=== PATIENT | female | born 1940 | race Two or more races ===

== ENCOUNTER 2022-10-25 14:41 | Inpatient (IN) | payer MEDICARE, MEDICAID, SELFPAY ==
--- NOTE | ~2022-10-25 | US_ITS ---
EXAMINATION: US RETROPERITONEAL LIMITED (RENAL ONLY) CLINICAL INFORMATION: Chronic kidney disease. COMPARISON: Previous chest CT October 2022 TECHNIQUE: Grayscale and color imaging of the kidneys FINDINGS: RIGHT KIDNEY: 9.3 x 4.4 x 4.9 cm (SAG x AP x TRV). The kidney is normal in size, contour, and echogenicity. Renal cortical thickness is normal. No calculi or focal parenchymal lesions. No hydronephrosis. LEFT KIDNEY: 9.5 x 5 x 4 cm (SAG x AP x TRV). The kidney is normal in size, contour, and echogenicity. Renal cortical thickness is normal. 3.6 x 2.1 x 2.1 cm simple cyst in the medial upper pole. No imaging follow-up recommended. Trace perinephric fluid. No calculi. No hydronephrosis. US/US renal BI IMPRESSION: No evidence of hydronephrosis. Trace left perinephric fluid..
--- NOTE | ~2022-10-25 | CT_ITS ---
EXAMINATION: CT CHEST WITHOUT CONTRAST CLINICAL INFORMATION: Pneumonia COMPARISON: Radiographs the same day TECHNIQUE: Multidetector volumetric CT imaging of the chest was done. Axial MIP volume rendering provided. Sagittal and coronal reformatted images were obtained. This CT examination was performed using dose optimization techniques as appropriate, variously including the following: *Automated exposure control *Adjustment of mA and/or kV according to patient size (this includes techniques or standardized protocols for targeted exams where dose is matched to indication/reason for exam; i.e. extremities or head) *Use of iterative reconstruction technique DLP: Prone mGy-cm FINDINGS: GUEST EXPERIENCE MANAGER: Unchanged LUNGS: Extensive consolidation left upper lobe and lesser degrees both lower lung zones involving the lower lobes. Notable elevation right hemidiaphragm. No parapneumonic effusion or any subpulmonic pleural effusions. MEDIASTINUM: Reactive appearing mediastinal lymph nodes. Extensive coronary artery calcifications. Notable prominence of the pulmonary arteries suggesting pulmonary hypertension. CORONARY ARTERY CALCIFICATION: Present PLEURA: There is no pleural effusion. No pleural mass or thickening. AXILLA: No lymphadenopathy. UPPER ABDOMEN: Unremarkable. OSSEOUS STRUCTURES: Unremarkable. CT/CT chest wo IV con IMPRESSION: Multifocal pneumonia as above. No parapneumonic effusion. Notable elevation right hemidiaphragm. Fleischner guidelines were followed.
--- NOTE | ~2022-10-25 | XR_ITS ---
EXAMINATION: XR CHEST 2 VIEW CLINICAL INFORMATION: Chest pain COMPARISON: None TECHNIQUE: PA and lateral views of the chest obtained. FINDINGS: There are low lung volumes. The right hemidiaphragm is elevated as compared to the left, but the right lung is clear. There are airspace opacities in the periphery of the left mid and lower lung zone. There is probably a small left pleural effusion there may also be a small right pleural effusion. The cardiomediastinal silhouette is not well assessed secondary to the low lung volumes. XR/XR chest 2V IMPRESSION: 1. Probable small bilateral pleural effusions with bibasilar atelectasis. 2. Airspace opacities in the left mid and lower lung zone, perhaps pneumonia, though nonspecific. Follow-up is recommended to confirm clearing. If persistent, chest CT might help better evaluate the airspace opacities.
[2022-10-25 14:43] VITALS: BP 153/85; PULSE 95; RESP 19; TEMP 38.4; O2SAT 91; BMI 26.9
--- NOTE | 2022-10-25 14:43 | ED.GENADULT ---
HPI - General Adult General Chief complaint: General Medical Stated complaint: diff breathing Time Seen by Provider: 10/25/22 15:15 Source: patient and family Mode of arrival: ambulatory Limitations: no limitations History of Present Illness HPI narrative: Patient comes to the emergency room complaining of nausea, vomiting, nasal congestion, sneezing. Patient complaining of fever and chills, patient denies abdominal pain, no UTI symptoms. Related Data Allergies Allergy/AdvReac Type Severity Reaction Status Date / Time No Known Allergies Allergy Verified 10/25/22 14:43 Review of Systems Review of Systems: Constitutional : No Weight loss, No Fever, No Chills, No Night Sweats, No Fatigue, No Malaise ENT/Mouth : No Hearing loss, No Ear Pain, No Nasal Congestion, No Sinus Pain, No Hoarseness, No sore throat, No Rhinorrhea, No Swallowing Difficulty Eyes: No Eye Pain, No Swelling, No Redness, No Foreign Body, No Discharge, No Vision Changes Cardiovascular : No Chest Pain, No SOB, No Dyspnea on Exertion, No Orthopnea, No Edema, No Palpitations Respiratory : No Cough, No Sputum, No Wheezing, complaining of nasal congestion and sneezing Gastrointestinal : No Nausea, No Vomiting, No Diarrhea, No Constipation, No abdominal Pain, No Hematochezia, No Melena Genitourinary : no irregular bleeding, No Dysuria, No Urinary Frequency, No Hematuria, No Urinary Incontinence, No Urgency, No Flank Pain, No Urinary Flow Changes, No Hesitancy Musculoskeletal : No joint pain, No Myalgias, No Joint Swelling Skin : No Skin Lesions, No rash Neuro : No Weakness, No Numbness, No Paresthesias, No Loss of Consciousness, No Dizziness, No Headache Psych : No Anxiety/Panic, No Depression, No SI/HI/AH/VH, No Social Issues, Heme/Lymph: No Bruising, No Bleeding,No Lymphadenopathy Endocrine : No Polyuria, No Polydipsia, No Temperature Intolerance [facility] Past Medical History Medical History (Updated 10/25/22 @ 16:38 by Jacinta Claros MD) Chronic kidney disease Hypertension Social History Social History Advance Directives: No Advance Directives Information Provided: Yes Physical Exam ED Vital Signs: Vital Signs - 24 hr 10/25/22 14:43 10/25/22 15:52 Temperature 101.2 F H 102.7 F H Pulse Rate 95 89 Respiratory Rate 19 45 H Blood Pressure 153/85 H 117/55 L Pulse Oximetry 91 L 83 L Oxygen Delivery Method Room Air Room Air BMI result Body Mass Index 26.9 Const Other: Appearance: Alert. Oriented X3. No acute distress. Eyes: Pupils equal, round and reactive to light. ENT: Pharynx normal. Neck: Normal inspection. Neck supple. No lymph nodes noted. No crepitus CVS: Normal heart rate and rhythm. Pulses normal. Normal S1 and S2 Respiratory: No respiratory distress. Breath sounds normal. No Wheezing. No rales Abdomen: Soft and nontender. No rigidity. No distention. Skin: Skin warm and dry. Normal skin color. Normal skin turgor. Extremities: No lower extremity edema. No Lacerations. No Rash Neuro: Oriented X 3. No motor deficit. No sensory deficit. Moving all extremities. No slurred speech. CN 2 through 12 grossly intact Psych: calm, cooperative, normal affect Course Course Course Narrative: RME- 82 year old female presents for evaluation of multiple complaints including abdominal pain, shortness of breath. Symptoms started 3-4 days ago. Symptoms worsened today. Patient found to be febrile in triage. Plan for labs, ekg, chest xray, covid swab, blood cultures Medications Administered Generic Name Dose Route Start Last Admin Trade Name Freq PRN Reason Stop Dose Admin Ceftriaxone Sodium 1 gm/ 50 mls @ 100 mls/hr 10/25/22 16:01 10/25/22 16:19 Sodium Chloride IV 10/25/22 16:30 100 mls/hr ONCE ONE Administration Sodium Chloride 2,068.38 mls @ 2,068.38 mls/hr 10/25/22 16:01 10/25/22 16:20 Ns 30 ml/kg infuse over 1 hr (2068.38 ml) 10/25/22 17:00 2,068.38 mls/hr IV Administration .Q1H STA Discontinued Medications Generic Name Dose Route Start Last Admin Trade Name Freq PRN Reason Stop Dose Admin Acetaminophen 975 mg 10/25/22 14:45 10/25/22 14:58 Acetaminophen 325 Mg Tablet PO 10/25/22 14:46 975 mg ONCE ONE Administration Ibuprofen 400 mg 10/25/22 15:56 10/25/22 16:07 Ibuprofen 600 Mg Tablet PO 10/25/22 15:57 400 mg ONCE ONE Administration Medical Decision Making Medical Decision Making [facility] Narrative: -on arrival in triage, patient was noted to have a fever of 101.2, given acetaminophen. Patient's fever actually increased, patient receiving ibuprofen. -it was noted that when patient moves/minimal exertion in bed, oxygen saturation drops to 83%., patient needs supplemental oxygen, 2 L, oxygenating 95%. -patient also reports that she has been nauseous and occasionally vomiting. -at this time, 16:03, chest x-rays and labs pending. Patient receiving IV fluids. At this time, unclear if patient has viral infection versus bacterial/pneumonia, source of infection likely to be respiratory. Patient empirically covered with IV antibiotics. -16:25, x-rays were taking, my interpretation of x-rays multilobular pneumonia, worse on the left lower lobe. The alleged report pending. IV Azithromycin has been added to the patient's antibiotic treatment -radiology report: Small bilateral pleural effusions, possible pneumonia. Patient has fever, this is likely to be pneumonia rather than effusions. Patient to be admitted. Discussed with patient and family, all agreeable -my interpretation of labs: White blood cell count 12.4, lactic acid normal. Creatinine 2.06, we do not have any previous labs for comparison. However, the patient's family did mention that the patient has chronic kidney disease. -I discussed the patient with Dr. Avendano, patient being admitted -respiratory panel pending Differential Diagnosis Differential Diagnoses: The differential diagnosis associated with the presentation includes Admission/Observation Consideration of admission/observation: Escalation of care including admission/observation considered Consult Healthcare Provider Management of the patient was discussed with: Hospitalist Lab Data [facility] Lab Attestation statement: I reviewed the patient's lab results. 10/25/22 15:40 10/25/22 15:40 Labs: Lab Results 10/25/22 10/25/22 10/25/22 Range/Units 15:13 15:40 15:40 WBC 12.4 H (4.8-10.8) X10*3/uL RBC 2.96 L (4.20-5.50) X10*6/uL Hgb 10.0 L (12.0-16.0) g/dl Hct 30.1 L (37.0-47.0) % MCV 101.7 H (80.0-98.0) fL MCH 33.8 H (27.0-33.0) pg MCHC 33.2 (31.0-35.0) g/dl RDW 13.2 (11.0-16.0) % Plt Count 128 L (160-400) X10*3/uL MPV 10.5 (9.4-12.3) fL Immature Gran % (Auto) 1.3 H (0.0-0.4) % Neut % (Auto) 90.2 H (45-73) % Lymph % (Auto) 4.7 L (20-40) % [place] % (Auto) 3.5 (2-11) % Eos % (Auto) 0.1 (0-4) % Baso % (Auto) 0.2 (0-2) % Lymph # (Auto) 0.6 L (1.2-4.9) X10*3/uL [place] # (Auto) 0.4 (0.1-1.2) X10*3/uL Eos # (Auto) 0.0 (0.0-0.4) X10*3/uL Baso # (Auto) 0.0 (0.0-0.2) X10*3/uL Abs Immat Gran (auto) 0.16 H (0.00-0.03) X10*3/uL Absolute Neuts (auto) 11.2 H (2.0-8.3) x10*3/uL Absolute Nucleated RBC 0.000 (0.0-0.012) X10*3/uL Nucleated RBC % (auto) 0.0 (0.0-0.2) /100WBC Smear Tech's Comments VERIFIED Sodium 135 (135-145) mmol/L Potassium 3.5 (3.3-5.1) mmol/L Chloride 103 (96-108) mmol/L Carbon Dioxide 24 (22-29) mmol/L Anion Gap 12 (12-20) BUN 50 H (9-16) mg/dL Creatinine 2.06 H (0.5-1.4) mg/dL Estim Creat Clear Calc 19.2 Estimated GFR 23 Random Glucose 133 H (60-115) mg/dL Lactic Acid (0.5-2.0) mmol/L Calcium 9.5 (8.4-10.2) mg/dL Total Bilirubin 0.6 (0.0-1.0) mg/dL AST 21 (5-31) U/L ALT 14 (0-31) U/L Alkaline Phosphatase 68 (39-117) U/L Troponin I High Sens (<3.5-17.0) ng/L Total Protein 7.7 (6.5-8.0) g/dL Albumin 4.0 (3.5-5.0) g/dL Lipase 10 (8-78) U/L COVID-19 (GERHARD) Negative (Negative) COVID-19 Clin Com See Note 10/25/22 10/25/22 Range/Units 15:40 15:40 WBC (4.8-10.8) X10*3/uL RBC (4.20-5.50) X10*6/uL Hgb (12.0-16.0) g/dl Hct (37.0-47.0) % MCV (80.0-98.0) fL MCH (27.0-33.0) pg MCHC (31.0-35.0) g/dl RDW (11.0-16.0) % Plt Count (160-400) X10*3/uL MPV (9.4-12.3) fL Immature Gran % (Auto) (0.0-0.4) % Neut % (Auto) (45-73) % Lymph % (Auto) (20-40) % [place] % (Auto) (2-11) % Eos % (Auto) (0-4) % Baso % (Auto) (0-2) % Lymph # (Auto) (1.2-4.9) X10*3/uL [place] # (Auto) (0.1-1.2) X10*3/uL Eos # (Auto) (0.0-0.4) X10*3/uL Baso # (Auto) (0.0-0.2) X10*3/uL Abs Immat Gran (auto) (0.00-0.03) X10*3/uL Absolute Neuts (auto) (2.0-8.3) x10*3/uL Absolute Nucleated RBC (0.0-0.012) X10*3/uL Nucleated RBC % (auto) (0.0-0.2) /100WBC Smear Tech's Comments Sodium (135-145) mmol/L Potassium (3.3-5.1) mmol/L Chloride (96-108) mmol/L Carbon Dioxide (22-29) mmol/L Anion Gap (12-20) BUN (9-16) mg/dL Creatinine (0.5-1.4) mg/dL Estim Creat Clear Calc Estimated GFR Random Glucose (60-115) mg/dL Lactic Acid 1.8 (0.5-2.0) mmol/L Calcium (8.4-10.2) mg/dL Total Bilirubin (0.0-1.0) mg/dL AST (5-31) U/L ALT (0-31) U/L Alkaline Phosphatase (39-117) U/L Troponin I High Sens 20.2 H (<3.5-17.0) ng/L Total Protein (6.5-8.0) g/dL Albumin (3.5-5.0) g/dL Lipase (8-78) U/L COVID-19 (GERHARD) (Negative) COVID-19 Clin Com Radiology Impression Discussion of test interpretation with radiology: I have reviewed the radiologist's reading. Radiologist Impression: 1. Probable small bilateral pleural effusions with bibasilar atelectasis. ? 2. Airspace opacities in the left mid and lower lung zone, perhaps pneumonia, though nonspecific. Follow-up is recommended to confirm clearing. If persistent, chest CT might help better evaluate the airspace opacities. Critical Care Time Critical Care Time Critical Care Time: Yes Total Critical Care Time: 75 Attestation: I have personally provided critical care time. Time includes review of lab data, radiology results, discussion with consultants, and monitoring for potential decompensation. Intervention performed as documented. Discharge Plan Discharge Clinical Impression: Pneumonia Patient Disposition: Admitted As Inpatient
--- NOTE | 2022-10-25 14:44 | ECG_ITS ---
Test Reason : PAIN Blood Pressure : / mmHG Vent. Rate : 090 BPM Atrial Rate : 000 BPM P-R Int : 000 ms QRS Dur : 086 ms QT Int : 320 ms P-R-T Axes : 000 060 -68 degrees QTc Int : 391 ms Atrial fibrillation Low voltage QRS Nonspecific ST and T wave abnormality Septal infarct , age undetermined Abnormal ECG No previous ECGs available Referred By: Reynaldo Will Electronically Signed By:ROBERTA MARS
[2022-10-25] MEDS: Acetaminophen 325 MG TABLET 975 MG PO (14:58)
--- NOTE | 2022-10-25 15:27 | MHC.EDTECH ---
this pct attempted to draw labs but i was only able to get the waste tube and one single bottle of cultures then patients veins blew. RN AWARE
[2022-10-25 15:41] LABS: COVID-19 Test Negative (Negative); IDNOW Serial# 08D9AD1C
[2022-10-25 15:52] VITALS: BP 117/55; PULSE 89; RESP 45; TEMP 39.3; O2SAT 83
[2022-10-25 15:56] LABS: Basophils Percent Auto 0.2 % (0-2); Eosinophils Percent Auto 0.1 % (0-4); Hematocrit 30.1 % (37.0-47.0); Imm Gran Abs Auto 0.16 X10*3/uL (0.00-0.03); Imm Gran Pct Auto 1.3 % (0.0-0.4); Lymphocytes Absolute Auto 0.6 X10*3/uL (1.2-4.9); Lymphocytes Percent Auto 4.7 % (20-40); MANUAL DIFF FLAG SCAN; Mean Corpuscular HGB Conc 33.2 g/dl (31.0-35.0); Mean Corpuscular Hemoglobin 33.8 pg (27.0-33.0); Mean Corpuscular Volume 101.7 fL (80.0-98.0); Mean Platelet Volume 10.5 fL (9.4-12.3); Monocytes Absolute Auto 0.4 X10*3/uL (0.1-1.2); Monocytes Percent Auto 3.5 % (2-11); Neutrophils Absolute Auto 11.2 x10*3/uL (2.0-8.3); Neutrophils Percent Auto 90.2 % (45-73); Platelet Count 128 X10*3/uL (160-400); Red Blood Count 2.96 X10*6/uL (4.20-5.50); Red Cell Distribution Width 13.2 % (11.0-16.0); SCAN SMEAR FLAG 1; White Blood Count 12.4 X10*3/uL (4.8-10.8)
[2022-10-25 16:05] LABS: Lactic Acid 1.8 mmol/L (0.5-2.0)
[2022-10-25] MEDS: Ibuprofen 600 MG TABLET 400 MG PO (16:07)
[2022-10-25 16:10] LABS: Alanine Aminotransferase 14 U/L (0-31); Alkaline Phosphatase 68 U/L (39-117); Anion Gap 12 (12-20); Aspartate Amino Transferase 21 U/L (5-31); Bilirubin Total 0.6 mg/dL (0.0-1.0); Blood Urea Nitrogen 50 mg/dL (9-16); Calcium 9.5 mg/dL (8.4-10.2); Carbon Dioxide 24 mmol/L (22-29); Chloride 103 mmol/L (96-108); Creatinine Clr Calc Pharmacy 19.2; Estimated Glomerular Filt Rate 23; Glucose Random 133 mg/dL (60-115); Lipase 10 U/L (8-78); Potassium 3.5 mmol/L (3.3-5.1); Sodium 135 mmol/L (135-145); Total Protein 7.7 g/dL (6.5-8.0)
[2022-10-25 16:16] LABS: SLIDE REVIEW VERIFIED
[2022-10-25] MEDS: cefTRIAXone sodium 1 GM in 0.9 % Sodium Chloride 50 ML IV (16:19)
[2022-10-25] MEDS: 0.9 % Sodium Chloride 2,068.38 ML 2068.38 ML IV (16:20)
[2022-10-25 16:23] LABS: Troponin-I High Sensitivity 20.2 ng/L (<3.5-17.0)
[2022-10-25 16:48] LABS: INTERNATIONAL NORM RATIO 1.3 (0.9-1.1); Prothrombin Time 15.4 SEC (11.1-13.3)
[2022-10-25 16:50] LABS: Partial Thromboplastin Time 27.6 SEC (26.0-36.4)
[2022-10-25] MEDS: Azithromycin 500 MG in 0.9 % Sodium Chloride 250 ML 125 MG IV (16:54)
--- NOTE | 2022-10-25 17:03 | PHA.MEDREC ---
Pharmacy Consult ? Medication Reconciliation Pharmacy has completed the medication reconciliation. Patient's daughter had bag of patient's medications. Patient had multiple bottles of same medications therefore patient is most likely not adherent to her medications. Nery Gomez, PharmD
[2022-10-25 17:07] LABS: IDNOW Serial# BCCEAD1C; Influenza A Negative (Negative); Influenza B2 Negative (Negative)
[2022-10-25 17:13] VITALS: BP 119/45; PULSE 85; RESP 31; TEMP 37.9; O2SAT 97
--- NOTE | 2022-10-25 17:15 | MHC.EDTECH ---
PATIENT RESP PANEL DONE AND SENT TO LAB ,BELONINGS LIST DONE ,AND VITALS SIGN TAKEN PT DAUGHTER AT BEDSIDE .
[2022-10-25 18:15] VITALS: BP 154/95; PULSE 92; RESP 24; TEMP 36.7; O2SAT 98
[2022-10-25 18:24] LABS: Procalcitonin 4.18 ng/mL
--- NOTE | 2022-10-25 18:24 | P.HPHOSP_ITS ---
History of Present Illness Date of Service: 10/25/22 Attending physician on admission: Berlin Hathaway Chief Complaint: sob 82-year-old female with past medical history of hypertension, CKD, hypothyroidism, anxiety/depression-she is from [place] visiting her family here, she says that from last 2-3 days she is having lot of sneezing congestion, and also getting from yesterday short of breath. She had some nausea which resolved. She denies any significant cough or phlegm. She has chills and feel feverish. Patient says that the shortness of breath was progressively getting worse so she decided to come to the hospital. As per the daughter she denies any sick contact . She had diarrhea which resolved, denies any blood in the stool or any history of melena or bleeding. In ED: Lab imaging EKG reviewed: She has WBC count of 12.4, lactic acid normal, creatinine of 2.1 baseline unclear but patient says that she has history of kidney disease. H&H 1030.1. Platelets 128 Chest x-ray: Possible left-sided infiltrate. EKG:? afib. Patient received: Ceftriaxone azithromycin, ibuprofen in ED, also placed on supportive oxygen: Sats was 83% on room air in ED documentation improving with 2 L oxygen Social history: Which doing her family here , does not smoke or drink alcohol or recreation drug use. Review of Systems Review of Systems: As above. [facility] Medical History (Updated 10/25/22 @ 18:36 by Berlin Hathaway MD) Chronic kidney disease Hypertension Social History Smoked in Last 30 Days: No Use of substances other than those prescribed or required for medical reasons: No Advance Directives: No Advance Directives Information Provided: Yes Meds Allergies Allergy/AdvReac Type Severity Reaction Status Date / Time No Known Allergies Allergy Verified 10/25/22 14:43 Active Medications: Current Medications Atenolol (Atenolol 25 Mg Tablet) 25 mg PO DAILY DANYELLE; Protocol Atorvastatin Calcium (Atorvastatin Calcium 20 Mg Tablet) 20 mg PO DAILY DANYELLE Bismuth Subsalicylate (Bismuth Subsalicylate Liquid 524 Mg/30 Ml Oral.Susp) 524 mg PO Q30M PRN PRN Reason: Indigestion Clonazepam (Clonazepam 0.5 Mg Tablet) 0.5 mg PO BID PRN PRN Reason: Anxiety Clopidogrel Bisulfate (Clopidogrel Bisulfate 75 Mg Tablet) 75 mg PO DAILY [facility] Folic Acid (Folic Acid 1 Mg Tablet) 1 mg PO DAILY DANYELLE Azithromycin 500 mg/ Sodium (Chloride) 250 mls @ 125 mls/hr IV ONCE ONE Stop: 10/25/22 18:24 Last Admin: 10/25/22 16:54 Dose: 125 mls/hr Ceftriaxone Sodium 1 gm/ (Sodium Chloride) 50 mls @ 100 mls/hr IV Q24H DANYELLE Azithromycin 500 mg/ Sodium (Chloride) 250 mls @ 125 mls/hr IV Q24H [facility] Levothyroxine Sodium (Levothyroxine Sodium 50 Mcg Tablet) 50 mcg PO DAILY [facility] Loperamide HCl (Loperamide Hcl 2 Mg Capsule) 2 mg PO Q4H PRN PRN Reason: Diarrhea Mirtazapine (Mirtazapine 30 Mg Tablet) 30 mg PO BEDTIME DANYELLE Non-Formulary Medication (Losartan-Hydrochlorothiazide) 1 tab PO DAILY [facility] Non-Formulary Medication (Pantoprazole) 40 mg PO DAILY [facility] Pentoxifylline (Pentoxifylline Er 400 Mg Tablet.Er) 400 mg PO DAILY [facility] Sertraline HCl (Sertraline Hcl 100 Mg Tablet) 100 mg PO DAILY [facility] Sodium Chloride (0.9 % Sodium Chloride Flush 3 Ml Syringe) 3 ml IVFLUSH QSHIFT [facility] Home Medications Medication Instructions Recorded Confirmed Last Taken Type acetaminophen 500 mg tablet 500 mg PO Q6H PRN Pain 10/25/22 10/25/22 Unknown H istory atenolol 25 mg tablet 25 mg PO DAILY 10/25/22 10/25/22 Unknown History atorvastatin 20 mg tablet 20 mg PO DAILY 10/25/22 10/25/22 Unknown History bismuth subsalicylate 525 mg/15 mL 525 mg PO Q30M PRN Indigestion 10/25/22 10/25/22 Unknown History oral suspension clonazepam 0.5 mg tablet 0.5 mg PO BID PRN Anxiety 10/25/22 10/25/22 Unknown History clopidogrel 75 mg tablet (Plavix) 75 mg PO DAILY 10/25/22 10/25/22 Unknown History folic acid 1 mg tablet 1 mg PO DAILY 10/25/22 10/25/22 Unknown History levothyroxine 50 mcg tablet 50 mcg PO DAILY 10/25/22 10/25/22 Unknown History loperamide 2 mg capsule 2 mg PO Q4H PRN Diarrhea 10/25/22 10/25/22 Unknown History losartan 100 1 tab PO DAILY 10/25/22 10/25/22 Unknown History mg-hydrochlorothiazide 12.5 mg tablet mirtazapine 30 mg tablet 30 mg PO BEDTIME 10/25/22 10/25/22 Unknown History pantoprazole 40 mg tablet,delayed 40 mg PO DAILY 10/25/22 10/25/22 Unknown History release pentoxifylline 400 mg 400 mg PO DAILY 10/25/22 10/25/22 Unknown History tablet,extended release sertraline 100 mg tablet 150 mg PO DAILY 10/25/22 10/25/22 Unknown History Physical Exam Vital Signs and Narrative: Vital Signs: Last Vital Signs Temp 98.1 F 10/25/22 18:15 Pulse 92 10/25/22 18:15 Resp 24 H 10/25/22 18:15 BP 154/95 H 10/25/22 18:15 Pulse Ox 98 10/25/22 18:15 O2 Del Method Nasal Cannula 10/25/22 18:15 O2 Flow Rate 2 10/25/22 18:15 BMI result Body Mass Index 26.9 Appearance: Alert.? Oriented X3.? somwhat generlaised weak. Eyes: Pupils equal, round and reactive to light.? Sclera nonicteric.? ENT: Pharynx normal.? Moist mucous membranes. cvs: rrr, [id number]. res: clear to auscultation ,no rhonchii or wheezing abd: no rebound or guarding ,nt, bs present. ext pulses present , no cyanosis ,Gait well balanced well coordinated. neuro: axo3 , nonfocal. Results Labs 10/25/22 15:40 10/25/22 15:40 Labs: Laboratory Results - last 24 hr 10/25/22 10/25/22 10/25/22 15:13 15:40 15:40 MCV 101.7 H MCH 33.8 H MCHC 33.2 RDW 13.2 Plt Count 128 L MPV 10.5 Immature Gran % (Auto) 1.3 H Neut % (Auto) 90.2 H Lymph % (Auto) 4.7 L [place] % (Auto) 3.5 Eos % (Auto) 0.1 Baso % (Auto) 0.2 Lymph # (Auto) 0.6 L [place] # (Auto) 0.4 Eos # (Auto) 0.0 Baso # (Auto) 0.0 Abs Immat Gran (auto) 0.16 H Absolute Neuts (auto) 11.2 H Absolute Nucleated RBC 0.000 Nucleated RBC % (auto) 0.0 Smear Tech's Comments VERIFIED PT INR APTT Anion Gap 12 Estim Creat Clear Calc 19.2 Estimated GFR 23 Random Glucose 133 H Lactic Acid Calcium 9.5 Total Bilirubin 0.6 AST 21 ALT 14 Alkaline Phosphatase 68 Total Protein 7.7 Albumin 4.0 Lipase 10 COVID-19 (GERHARD) Negative COVID-19 Clin Com See Note Influenza Type A (ALEXEI) Influenza Type B (ALEXEI) Influenza A & B Note 10/25/22 10/25/22 10/25/22 15:40 16:32 16:32 MCV MCH MCHC RDW Plt Count MPV Immature Gran % (Auto) Neut % (Auto) Lymph % (Auto) [place] % (Auto) Eos % (Auto) Baso % (Auto) Lymph # (Auto) [place] # (Auto) Eos # (Auto) Baso # (Auto) Abs Immat Gran (auto) Absolute Neuts (auto) Absolute Nucleated RBC Nucleated RBC % (auto) Smear Tech's Comments PT 15.4 H INR 1.3 H APTT 27.6 Anion Gap Estim Creat Clear Calc Estimated GFR Random Glucose Lactic Acid 1.8 Calcium Total Bilirubin AST ALT Alkaline Phosphatase Total Protein Albumin Lipase COVID-19 (GERHARD) COVID-19 Clin Com Influenza Type A (ALEXEI) Negative Influenza Type B (ALEXEI) Negative Influenza A & B Note See Note Imaging Radiologist's Impressions: Impressions Chest X-Ray 10/25/22 16:15 IMPRESSION: 1. Probable small bilateral pleural effusions with bibasilar atelectasis. 2. Airspace opacities in the left mid and lower lung zone, perhaps pneumonia, though nonspecific. Follow-up is recommended to confirm clearing. If persistent, chest CT might help better evaluate the airspace opacities. Assessment and Plan (1) Sepsis: Status: Acute (2) Pneumonia: Status: Acute Plan 82-year-old female with past medical history of hypertension, CKD, hypothyroidism, anxiety/depression-she is from [place] visiting her family here, she says that from last 2-3 days she is having lot of sneezing congestion, and also getting from yesterday short of breath. She had some nausea which resolved. She denies any significant cough or phlegm. She has chills and feel feverish. 1. Acute hypoxemic respiratory failure/sepsis secondary to pneumonia Patient WBC count 12.4, tachypnea, fever of 102*F Blood cultures sent Lactic acid normal. Influenza and COVID screening negative, Res panel pending. Strep and Legionella antigen CT chest, procalcitonin levels Continue IV antibiotics, Tylenol, oxygen support, question of atelectasis on the chest x-ray also we will add nebs, incentive spirometry. 2.: Hypertension: Continue losartan/hydrochlorothiazide.atenolol. 3. CKD stage 4: Monitor renal function closely 4. Anxiety /depression: Continue sertraline, Remeron, clonazepam. 5. Hypothyroid: Continue levothyroxine. will check tsh. 6. ? AFib on EKG: Heart rate is controlled, continue atenolol She does not remember cardiac history-unclear why she is on plavix . chadvasc of at least 2. Will add cardiology evaluation 7. DVT prophylaxis with subQ heparin Patient will need at least 2 midnight stays-need treatment for sepsis/pneumonia IV antibiotics as well as respiratory status monitoring, in addition question of new onset AFib?. Time Spent With Patient Time: Total time managing care of this patient today ____ minutes. Quality Stroke Does the patient have a stroke diagnosis?: No VTE Prior VTE?: No VTE Risk Level:: Medical - moderate - high VTE Device Contraindication: N/A - Device Ordered VTE Drug Contraindication: N/A - Med Ordered
--- NOTE | 2022-10-25 18:38 | PC.NURSE ---
Pt resting, denied any pain or discomfort, daughter at bedside, call ballesteros with in reach.
[2022-10-25 20:00] VITALS: BP 103/44; PULSE 73; RESP 20; TEMP 37.4; O2SAT 97
--- NOTE | 2022-10-25 20:05 | MHC.EDTECH ---
PT JUST CAME BACK FROM CT -SCAN ,VITALS SIGN TAKEN ,RN LEONARD IS AWARE OF PT LOW BP ,PT DRANK 120 ML JUICE AND ATE COUPLE OF SALTINES CRACKERS ,PT DAUGHTER AT BEDSIDE .
[2022-10-25] MEDS: Apixaban 2.5 MG TABLET PO (21:20)
[2022-10-25] MEDS: Mirtazapine 30 MG TABLET PO (21:20)
--- NOTE | 2022-10-25 21:52 | MHC.EDTECH ---
BLADDER SCAN DONE ,PT HAD 48 MLM IN BLADDER ,RN LEONARD IS AWARE.
[2022-10-25 22:15] VITALS: BMI 28.2
[2022-10-25 22:31] VITALS: BP 106/48; PULSE 74; RESP 24; TEMP 36.3; O2SAT 93
[2022-10-26] VITALS (8 sets, daily range): BP systolic 103–151; BP diastolic 57–76; PULSE 66–78; RESP 18–20; TEMP 35.8–36.8; O2SAT 94–98
[2022-10-26] MEDS: 0.9 % Sodium Chloride Flush 3 ML SYRINGE IVFLUSH ×2 (00:09→16:04)
--- NOTE | 2022-10-26 01:58 | PC.NURSE ---
Pt arrived on unit around 22:15 from ED. VSS. Pt on 2L NC. Telemetry SR. Pt's granddaughter, Katie present upon admission. Pt is croatian speaking only. She lives in [place] but is here visiting and staying with her daughter and her family. echo vasc tech called and assisted with communication. Pt denies sob/pain. Pt on IV antibiotics. Purewick in place and draining to suction. Plan of care explained to pt and her granddaughter. At baseline, pt ambulates independently with a cane. Pt asked to ring for assistance for safety. Bed alarm on for the night. Will reassess in am. Pt sleeping comfortably in bed with call ballesteros within reach.
--- NOTE | 2022-10-26 03:06 | PC.NURSE ---
Awaiting urine for sample-pt aware. Placed pt on bedpan but pt stated she did not need to void. Bladder scan done 111mls. Will try again later.
[2022-10-26 05:39] LABS: Hematocrit 28.3 % (37.0-47.0); Hemoglobin 8.8 g/dl (12.0-16.0); Mean Corpuscular HGB Conc 31.1 g/dl (31.0-35.0); Mean Corpuscular Hemoglobin 32.5 pg (27.0-33.0); Mean Corpuscular Volume 104.4 fL (80.0-98.0); Mean Platelet Volume 10.3 fL (9.4-12.3); Platelet Count 97 X10*3/uL (160-400); Red Blood Count 2.71 X10*6/uL (4.20-5.50); Red Cell Distribution Width 13.3 % (11.0-16.0); White Blood Count 9.8 X10*3/uL (4.8-10.8)
[2022-10-26] MEDS: Levothyroxine Sodium 50 MCG TABLET PO (05:55)
[2022-10-26] MEDS: Omeprazole 20 MG CAPSULE.DR PO (05:55)
[2022-10-26 06:10] LABS: Anion Gap 12 (12-20); Blood Urea Nitrogen 55 mg/dL (9-16); Calcium 8.5 mg/dL (8.4-10.2); Carbon Dioxide 23 mmol/L (22-29); Chloride 107 mmol/L (96-108); Creatinine Clr Calc Pharmacy 18.4; Estimated Glomerular Filt Rate 21; Glucose Random 112 mg/dL (60-115); Potassium 3.7 mmol/L (3.3-5.1); Sodium 138 mmol/L (135-145)
[2022-10-26 06:29] LABS: Thyroid Stimulating Hormone 0.77 uIU/mL (0.32-4.0)
--- NOTE | 2022-10-26 07:00 | CA_ITS ---
Transthoracic Echocardiogram Patient (Last, First, Middle): Sandrine Muniz, Gender: Female Date of : 1940 Age: 82 Procedure Date: 10/26/2022 Procedure Type: Transthoracic Echocardiogram Location: [facility] [place] Height: 160.02 cm Weight: 72.12 kg BSA: 1.75 m2 Heart Rate: 68 bpm BP: 119 / 63 mmHg Central Supply Worker: SEE Referring MD: Darryl Rodriguez MD Symptoms: Atrial fibrillation Study Quality: Fair/Contrast ECG Rhythm: Atrial Fibrillation Conclusions: - The left ventricular systolic function is mild to moderately decreased. The calculated ejection fraction is 42% by biplane method. - Moderate biatrial enlargement. - There is moderate tricuspid valve regurgitation. - Mild pulmonary hypertension is present. Findings Procedure Information Contrast agent, definity, is being given per protocol without apparent complications. Left Ventricle Normal left ventricular cavity size. There is mildly increased left ventricular wall thickness. The left ventricular systolic function is mild to moderately decreased. The calculated ejection fraction is 42% by biplane method. There is mild global hypokinesis. Diastolic function is indeterminate on the basis of available data. Right Ventricle Mildly increased right ventricular cavity size. There is normal right ventricular systolic function. Atria Moderate biatrial enlargement. Aortic Valve There is a normal trileaflet aortic valve. There is no aortic valve stenosis. There is no aortic valve regurgitation. Mitral Valve The mitral valve appears normal. There is trace mitral valve regurgitation. There is no mitral valve stenosis. Pulmonic Valve The pulmonic valve is likely normal. There is trace pulmonic valve regurgitation. Tricuspid Valve Normal tricuspid valve structure. There is moderate tricuspid valve regurgitation. Mild pulmonary hypertension is present. Great Vessels The asc aorta is normal in size. Venous The inferior vena cava is mildly dilated and collapses less than 50% with inspiration. Pericardium/Pleural There is no evidence of pericardial effusion. Prior Study Comparison No prior study available for comparison. Measurements 2D Linear Measurements IVSd: 1.10 0.6-0.9/0.6-1.0 cm LVIDd: 4.40 3.9-5.3/4.2-5.9 cm LVIDd Index: 2.51 2.4-3.2/2.2-3.1 cm/m2 LVIDs: 3.40 2.0-3.6 cm LVPWd: 1.10 0.7-1.1 cm LA Diam: 4.70 2.7-3.8/3.0-4.0 cm LAIDs Index: 2.69 1.5-2.3 cm/m2 LV Mass: 210.40 67-162/88-224 g LV Mass Index: 120.23 43-95/49-115 g/m2 LVOT Diam: 1.90 3.0+(-)1.3 cm 2D Systolic Function EF 4C: 35.20 >55% EF 2C: 52.50 >55% EF BiP: 42.10 >55% Mitral Valve MV Pk E: 0.83 MV PK A: 0.40 MV Decel Time: 149.00 E/A: 2.10 E'Lateral: 11.30 E'Medial: 9.03 E/E' Med: 9.20 E/E' Lat: 7.40 PHT: 44.00 MVA PHT: 5.00 Decel Flagler: 5.57 Aortic Valve AoV Pk Lambert: 1.00 AoV Mn Lambert: 0.74 AoV VTI: 0.23 AoV Pk Grad: 4.00 Aov Mn Grad: 2.00 SUMAN Cont.VTI: 1.76 LVOT LVOT Pk Lambert: 0.74 LVOT Mn Lambert: 0.50 LVOT VTI: 0.14 LVOT Pk Grad: 2.00 LVOT Mn Grad: 1.00 LVOT Diam: 1.90 LVOT Area: 2.84 Diastolic Function MV Pk E: 0.83 MV Pk A: 0.40 E/A: 2.10 E'Medial: 9.03 E/E' Med: 9.20 E' Laterial: 11.30 E/E' Lat: 7.40 Right Ventricle TAPSE (mm): 21.70 TVS' Lambert: 8.92 Tricuspid Valve TR Pk Lambert: 2.43 TR Pk Grad: 24.00 RA Press: 15.00 RVSP: 39.00 Great Vessels Aorta Sinus of Valsalva: 3.50 2.0-3.5 cm Ao Asc: 3.50 2.1-3.4 cm Pulmonary Valve PV Pk Lambert: 0.80 Peak PV Grad: 3.00 Updated in Other Vendor System with Status of Final Darryl Rodriguez MD electronically signed on 10/26/2022 1:17:23 PM with status of Final
[2022-10-26] MEDS: levalbuterol HCL 1.25 MG/3 ML VIAL.NEB INHALE ×2 (08:15→14:42)
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
[2022-10-26] MEDS: Losartan Potassium 50 MG TABLET 100 MG PO (09:54)
[2022-10-26] MEDS: Sertraline HCL 100 MG TABLET 150 MG PO (09:54)
[2022-10-26] MEDS: Atorvastatin Calcium 20 MG TABLET PO (09:54)
[2022-10-26] MEDS: Pentoxifylline ER 400 MG TABLET.ER PO (09:57)
[2022-10-26] MEDS: hydroCHLOROthiazide 12.5 MG TABLET PO (09:57)
[2022-10-26] MEDS: atenoloL 25 MG TABLET PO (09:58)
[2022-10-26] MEDS: Clopidogrel Bisulfate 75 MG TABLET PO (09:58)
[2022-10-26] MEDS: Apixaban 2.5 MG TABLET PO ×2 (09:58→20:21)
[2022-10-26] MEDS: Folic Acid 1 MG TABLET PO (09:59)
[2022-10-26 10:54] LABS: Adenovirus PCR Not Detected (Not Detect.); Bordetella parapertussis PCR Not Detected (Not Detect.); Bordetella pertussis PCR Not Detected (Not Detect.); Chlamydia pneumoniae PCR Not Detected (Not Detect.); Coronavirus 229E PCR Not Detected (Not Detect.); Coronavirus HKU1 PCR Not Detected (Not Detect.); Coronavirus NL63 PCR Not Detected (Not Detect.); Coronavirus OC43 PCR Not Detected (Not Detect.); Human metapneumovirus PCR Not Detected (Not Detect.); Influenza A PCR Not Detected (Not Detect.); Influenza B PCR Not Detected (Not Detect.); Mycoplasma pneumoniae PCR Not Detected (Not Detect.); Parainfluenza 1 PCR Not Detected (Not Detect.); Parainfluenza 2 PCR Not Detected (Not Detect.); Parainfluenza 3 PCR Not Detected (Not Detect.); Parainfluenza 4 PCR Not Detected (Not Detect.); RSV PCR Not Detected (Not Detect.); Rhino/Enterovirus PCR Not Detected (Not Detect.); SARS-CoV-2 PCR Not Detected (Not Detect.)
--- NOTE | 2022-10-26 14:24 | P.PNIM_ITS ---
Subjective Subjective Date of Service: 10/27/22 Interval History: sob Review of Systems Still feel little weak generally, has cough dry Shortness of breath somewhat improving Fever and tachycardia improved. Physical Exam Vital Signs: Vital Signs: Last Vital Signs Temp 97.5 F 10/26/22 12:00 Pulse 66 10/26/22 12:00 Resp 20 10/26/22 12:00 BP 103/69 10/26/22 12:00 Pulse Ox 97 10/26/22 12:00 O2 Del Method Nasal Cannula 10/26/22 12:00 O2 Flow Rate 2 10/26/22 12:00 BMI result Body Mass Index 28.2 Appearance: Alert.? Oriented X3.? not in distress.? cvs: [id number], [id number] , no murmur res: clear to auscultation ,no rhonchii or wheezing abd: no rebound or guarding ,nt, bs present. ext pulses present , no cyanosis . neuro: axo3 , nonfocal. Objective Data Active Medications Apixaban (Apixaban 2.5 Mg Tablet) 2.5 mg PO BID [facility] Last Admin: 10/26/22 09:58 Dose: 2.5 mg Documented By: CINDY Atenolol (Atenolol 25 Mg Tablet) 25 mg PO DAILY [facility]; Protocol Last Admin: 10/26/22 09:58 Dose: 25 mg Documented By: CINDY Atorvastatin Calcium (Atorvastatin Calcium 20 Mg Tablet) 20 mg PO DAILY [facility] Last Admin: 10/26/22 09:54 Dose: 20 mg Documented By: CINDY Bismuth Subsalicylate (Bismuth Subsalicylate Liquid 524 Mg/30 Ml Oral.Susp) 524 mg PO Q30M PRN PRN Reason: Indigestion Clonazepam (Clonazepam 0.5 Mg Tablet) 0.5 mg PO BID PRN PRN Reason: Anxiety Clopidogrel Bisulfate (Clopidogrel Bisulfate 75 Mg Tablet) 75 mg PO DAILY [facility] Last Admin: 10/26/22 09:58 Dose: 75 mg Documented By: CINDY Folic Acid (Folic Acid 1 Mg Tablet) 1 mg PO DAILY [facility] Last Admin: 10/26/22 09:59 Dose: 1 mg Documented By: CINDY Hydrochlorothiazide (Hydrochlorothiazide 12.5 Mg Tablet) 12.5 mg PO DAILY [facility] Last Admin: 10/26/22 09:57 Dose: 12.5 mg Documented By: CINDY Ceftriaxone Sodium 1 gm/ (Sodium Chloride) 50 mls @ 100 mls/hr IV Q24H [facility] Azithromycin 500 mg/ Sodium (Chloride) 250 mls @ 125 mls/hr IV Q24H [facility] Levalbuterol HCl (Levalbuterol Hcl 1.25 Mg/3 Ml Vial.Neb) 1.25 mg INHALE RTID [facility] Last Admin: 10/26/22 08:15 Dose: 1.25 mg Documented By: ALON Levothyroxine Sodium (Levothyroxine Sodium 50 Mcg Tablet) 50 mcg PO DAILY@0600 [facility] Last Admin: 10/26/22 05:55 Dose: 50 mcg Documented By: OBEY Loperamide HCl (Loperamide Hcl 2 Mg Capsule) 2 mg PO Q4H PRN PRN Reason: Diarrhea Losartan Potassium (Losartan Potassium 50 Mg Tablet) 100 mg PO DAILY [facility] Last Admin: 10/26/22 09:54 Dose: 100 mg Documented By: CINDY Mirtazapine (Mirtazapine 30 Mg Tablet) 30 mg PO BEDTIME [facility] Last Admin: 10/25/22 21:20 Dose: 30 mg Documented By: ROBEL Omeprazole (Omeprazole 20 Mg Capsule.Dr) 20 mg PO DAILY@0630 [facility] Last Admin: 10/26/22 05:55 Dose: 20 mg Documented By: OBEY Pentoxifylline (Pentoxifylline Er 400 Mg Tablet.Er) 400 mg PO DAILY [facility] Last Admin: 10/26/22 09:57 Dose: 400 mg Documented By: CINDY Sertraline HCl (Sertraline Hcl 100 Mg Tablet) 150 mg PO DAILY [facility] Last Admin: 10/26/22 09:54 Dose: 150 mg Documented By: CINDY Sodium Chloride (0.9 % Sodium Chloride Flush 3 Ml Syringe) 3 ml IVFLUSH QSHIFT [facility] Last Admin: 10/26/22 09:59 Dose: Not Given Documented By: CINDY Non-Admin Reason: IV Running Labs 10/26/22 05:28 10/26/22 05:28 Labs: Laboratory Results - last 24 hr 10/25/22 10/25/22 10/25/22 15:13 15:40 15:40 MCV 101.7 H MCH 33.8 H MCHC 33.2 RDW 13.2 Plt Count 128 L MPV 10.5 Immature Gran % (Auto) 1.3 H Neut % (Auto) 90.2 H Lymph % (Auto) 4.7 L [place] % (Auto) 3.5 Eos % (Auto) 0.1 Baso % (Auto) 0.2 Lymph # (Auto) 0.6 L [place] # (Auto) 0.4 Eos # (Auto) 0.0 Baso # (Auto) 0.0 Abs Immat Gran (auto) 0.16 H Absolute Neuts (auto) 11.2 H Absolute Nucleated RBC 0.000 Nucleated RBC % (auto) 0.0 Smear Tech's Comments VERIFIED PT INR APTT Anion Gap 12 Estim Creat Clear Calc 19.2 Estimated GFR 23 Random Glucose 133 H Lactic Acid Calcium 9.5 Total Bilirubin 0.6 AST 21 ALT 14 Alkaline Phosphatase 68 Total Protein 7.7 Albumin 4.0 Lipase 10 Procalcitonin 4.18 TSH Respiratory Panel [place] Adenovirus (Rapid PCR) B.pert (TEM-PCR) B.parapertussis DNA PCR C. pneumoniae DNA (PCR) Coronavirus OC43 (PCR) Coronavirus HKU1 (PCR) Coronavirus 229E (PCR) COVID-19 ([facility]ARD) Negative COVID-19 Clin Com See Note Coronavirus NL63 (PCR) Human Metapneumovir PCR Influenza Type A (ALEXEI) Influenza A (RT-PCR) Influenza Type B (ALEXEI) Influenza B (RT-PCR) Influenza A & B Note M. pneumoniae (PCR) Parainfluenza 1 (PCR) Parainfluenza 2 (PCR) Parainfluenza 3 (PCR) Parainfluenza 4 (PCR) RSV (PCR) Entero/Rhino (PCR) SARS-CoV-2 RNA (RT-PCR) 10/25/22 10/25/22 10/25/22 15:40 16:32 16:32 MCV MCH MCHC RDW Plt Count MPV Immature Gran % (Auto) Neut % (Auto) Lymph % (Auto) Piute % (Auto) Eos % (Auto) Baso % (Auto) Lymph # (Auto) Piute # (Auto) Eos # (Auto) Baso # (Auto) Abs Immat Gran (auto) Absolute Neuts (auto) Absolute Nucleated RBC Nucleated RBC % (auto) Smear Tech's Comments PT 15.4 H INR 1.3 H APTT 27.6 Anion Gap Estim Creat Clear Calc Estimated GFR Random Glucose Lactic Acid 1.8 Calcium Total Bilirubin AST ALT Alkaline Phosphatase Total Protein Albumin Lipase Procalcitonin TSH Respiratory Panel [place] Adenovirus (Rapid PCR) B.pert (TEM-PCR) B.parapertussis DNA PCR C. pneumoniae DNA (PCR) Coronavirus OC43 (PCR) Coronavirus HKU1 (PCR) Coronavirus 229E (PCR) COVID-19 ([facility]) COVID-19 Clin Com Coronavirus NL63 (PCR) Human Metapneumovir PCR Influenza Type A (ALEXEI) Negative Influenza A (RT-PCR) Influenza Type B (ALEXEI) Negative Influenza B (RT-PCR) Influenza A & B Note See Note M. pneumoniae (PCR) Parainfluenza 1 (PCR) Parainfluenza 2 (PCR) Parainfluenza 3 (PCR) Parainfluenza 4 (PCR) RSV (PCR) Entero/Rhino (PCR) SARS-CoV-2 RNA (RT-PCR) 10/25/22 10/26/22 10/26/22 16:49 05:28 05:28 MCV 104.4 H MCH 32.5 MCHC 31.1 RDW 13.3 Plt Count 97 L MPV 10.3 Immature Gran % (Auto) Neut % (Auto) Lymph % (Auto) Piute % (Auto) Eos % (Auto) Baso % (Auto) Lymph # (Auto) Piute # (Auto) Eos # (Auto) Baso # (Auto) Abs Immat Gran (auto) Absolute Neuts (auto) Absolute Nucleated RBC 0.000 Nucleated RBC % (auto) 0.0 Smear Tech's Comments PT INR APTT Anion Gap 12 Estim Creat Clear Calc 18.4 Estimated GFR 21 Random Glucose 112 Lactic Acid Calcium 8.5 D Total Bilirubin AST ALT Alkaline Phosphatase Total Protein Albumin Lipase Procalcitonin TSH 0.77 Respiratory Panel [place] See Note Adenovirus (Rapid PCR) Not Detected B.pert (TEM-PCR) Not Detected B.parapertussis DNA PCR Not Detected C. pneumoniae DNA (PCR) Not Detected Coronavirus OC43 (PCR) Not Detected Coronavirus HKU1 (PCR) Not Detected Coronavirus 229E (PCR) Not Detected COVID-19 ([facility]) COVID-19 Clin Com Coronavirus NL63 (PCR) Not Detected Human Metapneumovir PCR Not Detected Influenza Type A (ALEXEI) Influenza A (RT-PCR) Not Detected Influenza Type B (ALEXEI) Influenza B (RT-PCR) Not Detected Influenza A & B Note M. pneumoniae (PCR) Not Detected Parainfluenza 1 (PCR) Not Detected Parainfluenza 2 (PCR) Not Detected Parainfluenza 3 (PCR) Not Detected Parainfluenza 4 (PCR) Not Detected RSV (PCR) Not Detected Entero/Rhino (PCR) Not Detected SARS-CoV-2 RNA (RT-PCR) Not Detected Assessment and Plan (1) Cardiomyopathy: Status: Acute (2) Anemia: Status: Acute (3) Thrombocytopenia: Status: Acute (4) Chronic kidney disease: Status: Acute Plan ?82-year-old female with past medical history of hypertension, CKD, hyp othyroidism, anxiety/depression-she is from [place] visiting her family here, she says that from last 2-3 days she is having lot of sneezing congestion, and also getting from yesterday short of breath.? She had some nausea which resolved.? She denies any significant cough or phlegm.? She has chills and feel feverish. 1. Acute hypoxemic respiratory failure/sepsis secondary to pneumonia leucocytosis , tachypnea, fever seems to be improved. Blood cultures pendin Lactic acid normal,Influenza and COVID screening negative, Res panel neg. Strep and Legionella antigen CT chest-multifocal pneumonia Continue IV antibiotics, Tylenol, oxygen support, question of atelectasis on the chest x-ray also we will add nebs, incentive spirometry.? 2.:? Hypertension:? Continue losartan/hydrochlorothiazide.atenolol. 3. CKD stage 4:? Monitor renal function closely 4. Anxiety /depression:? Continue sertraline, Remeron, clonazepam. 5. Hypothyroid:? Continue levothyroxine. normal tsh. 6. ?? AFib on EKG:? Heart rate is controlled, continue atenolol She does not remember cardiac history-unclear why? she is on plavix . chadvasc of at least 2. cardiology evaluation noted-continue atenolol,started eliquis after d/w family. stop plavix as on eliquis echo The left ventricular systolic function is mild to moderately ? decreased.? The calculated ejection fraction is 42% by biplane ? method.? - Moderate biatrial enlargement. ? - There is moderate tricuspid valve regurgitation. ? - Mild pulmonary hypertension is present.?? 7. DVT prophylaxis: eliquis inapatient need:Acute hypoxemic respiratory failure/sepsis secondary to pneumonia Time Spent With Patient Time: Total time managing care of this patient today ____ minutes. Quality Stroke Does the patient have a stroke diagnosis?: No VTE Prior VTE?: No VTE Risk Level:: Medical - moderate - high VTE Device Contraindication: N/A - Device Ordered VTE Drug Contraindication: N/A - Med Ordered
[2022-10-26] MEDS: cefTRIAXone sodium 1 GM in 0.9 % Sodium Chloride 50 ML IV (16:04)
[2022-10-26] MEDS: Azithromycin 500 MG in 0.9 % Sodium Chloride 250 ML 125 MG IV (16:48)
[2022-10-26] MEDS: Mirtazapine 30 MG TABLET PO (20:21)
[2022-10-26] MEDS: clonazePAM 0.5 MG TABLET PO (20:24)
[2022-10-27] VITALS (8 sets, daily range): BP systolic 119–152; BP diastolic 60–91; PULSE 70–89; RESP 18–20; TEMP 36.2–37.1; O2SAT 92–99
[2022-10-27] MEDS: 0.9 % Sodium Chloride Flush 3 ML SYRINGE IVFLUSH ×4 (01:08→22:29)
[2022-10-27] MEDS: Levothyroxine Sodium 50 MCG TABLET PO (05:53)
[2022-10-27] MEDS: Omeprazole 20 MG CAPSULE.DR PO (05:54)
[2022-10-27 08:43] LABS: Hematocrit 28.2 % (37.0-47.0); Hemoglobin 8.9 g/dl (12.0-16.0)
[2022-10-27 08:56] LABS: Anion Gap 14 (12-20); Blood Urea Nitrogen 45 mg/dL (9-16); Calcium 9.3 mg/dL (8.4-10.2); Carbon Dioxide 21 mmol/L (22-29); Chloride 108 mmol/L (96-108); Creatinine Clr Calc Pharmacy 24.8; Estimated Glomerular Filt Rate 30; Glucose Random 80 mg/dL (60-115); Potassium 4.1 mmol/L (3.3-5.1); Sodium 139 mmol/L (135-145)
[2022-10-27 09:14] LABS: Platelet Count 120 X10*3/uL (160-400)
--- NOTE | 2022-10-27 09:22 | P.PNCA_ITS ---
Subjective Subjective Date of Service: 10/27/22 Interval history: She states that she feels fine. No specific complaints. Review of Systems Review of Systems Yes all other systems are reviewed and are negative Constitutional: Reports as per HPI and Reports no additional constitutional complaints Eyes: Reports as per HPI and Denies no additional eye complaints Denies system reviewed and no additional complaints, except as documented and Reports as per HPI Cardiovascular: Reports as per HPI, Reports no additional cardiovascular complaints, Denies acrocyanosis, Denies cool extremities, Denies chest pain, Denies leg edema, Denies lightheadedness, Denies palpitations and Denies dyspnea Respiratory: Reports as per HPI, Denies no additional respiratory complaints and Denies dyspnea Gastrointestinal: Reports as per HPI and Denies no additional gastrointestinal complaints Genitourinary: Reports as per HPI Musculoskeletal: Reports no additional musculoskeletal complaints and Reports as per HPI Skin/Breast: Reports system reviewed and no additional complaints, except as docu Reports system reviewed and no additional complaints, except as documented and Reports as per HPI Psychiatric: Reports no additional psychiatric complaints and Reports as per HPI Endocrine: Reports no additional endocrine complaints, Reports as per HPI and Denies palpitations Hematologic/Lymphatic: Reports no additional hematologic/lymphatic complaints and Reports as per HPI Allergic/Immunologic: Reports no additional allergic/immunologic complaints and Reports as per HPI Physical Exam Vital Signs: Last Vital Signs Temp 97.9 F 10/27/22 07:41 Pulse 73 10/27/22 07:41 Resp 20 10/27/22 07:41 BP 122/69 10/27/22 07:41 Pulse Ox 99 10/27/22 07:41 O2 Del Method Nasal Cannula 10/27/22 07:41 O2 Flow Rate 2 10/27/22 07:41 BMI result Body Mass Index 28.2 Const General: comfortable and no acute distress Orientation/consciousness: patient oriented x3 HEENT Other: Unremarkable Head: Yes normal to inspection Neck Neck: Yes normal visual inspection Chest Chest palpation & inspection: normal inspection of the chest Resp Auscultation: clear to auscultation bilaterally Cardio Palpation: normal PMI Heart sounds: S1 normal heart sound present, S2 normal heart sound present, no gallops, no murmurs and no rubs GI Palpation (GI): Soft to palpation Back/Spine/Pelvis Other: unremarkable Skin General skin exam: no rashes or lesions noted Neuro General: patient oriented x3 Extrem General: Yes normal to inspection Psych Mental Status: mental status grossly normal Objective Labs and Meds 10/27/22 08:28 10/27/22 08:28 Lab results: Laboratory Results - last 24 hr 10/25/22 10/27/22 10/27/22 16:49 08:28 08:28 Hgb 8.9 L Hct 28.2 L Plt Count 120 L Sodium 139 Potassium 4.1 Chloride 108 Carbon Dioxide 21 L Anion Gap 14 BUN 45 H Creatinine 1.63 H Estim Creat Clear Calc 24.8 Estimated GFR 30 Random Glucose 80 Calcium 9.3 D Respiratory Panel [facility] See Note Adenovirus (Rapid PCR) Not Detected B.pert (TEM-PCR) Not Detected B.parapertussis DNA PCR Not Detected C. pneumoniae DNA (PCR) Not Detected Coronavirus OC43 (PCR) Not Detected Coronavirus HKU1 (PCR) Not Detected Coronavirus 229E (PCR) Not Detected Coronavirus NL63 (PCR) Not Detected Human Metapneumovir PCR Not Detected Influenza A (RT-PCR) Not Detected Influenza B (RT-PCR) Not Detected M. pneumoniae (PCR) Not Detected Parainfluenza 1 (PCR) Not Detected Parainfluenza 2 (PCR) Not Detected Parainfluenza 3 (PCR) Not Detected Parainfluenza 4 (PCR) Not Detected RSV (PCR) Not Detected Entero/Rhino (PCR) Not Detected SARS-CoV-2 RNA (RT-PCR) Not Detected Imaging Radiologist's impression: Impressions Renal Ultrasound 10/26/22 10:50 IMPRESSION: No evidence of hydronephrosis. Trace left perinephric fluid.. Progress Note: A&P Assessment and plan (1) Atrial fibrillation by electrocardiogram: Status: Acute (2) Cardiomyopathy: Status: Acute (3) Sepsis: Status: Acute (4) Pneumonia: Status: Acute (5) Hypertension: Status: Acute (6) Chronic kidney disease: Status: Acute (7) Anemia: Status: Acute (8) Thrombocytopenia: Status: Acute Plan EKG/telemetry show atrial fibrillation with controlled rate. Echocardiogram with LVEF of 42%. Moderate biatrial enlargement. Moderate tricuspid regurgitation and mild pulmonary hypertension. Unknown duration of atrial fibrillation. Multiple comorbidities including age, frailty, hypertension, chronic kidney disease. Her rate seems to be fairly well controlled and she takes atenolol 25mg as listed. In the labs, some anemia/chronic kidney disease findings. On discussion with the patient, no history of any bleeding issues. She has a fairly high stroke risk and hence would benefit from anticoagulation. Agree with Eliquis 2.5 mg b.i.d.. May stop the Plavix. Strongly advised to follow-up with a local physician once she returns to [place] as she is traveling back in a few days. Discussed with Dr. Hathaway. Time Spent With Patient Time: Total time managing care of this patient today 45 minutes. This includes time spent in review of chart, laboratory data, imaging studies, review of telemetry, counseling patient, discussion with hospitalist, RN, documentation, coordination of care. Progress Note: Quality Stroke Does the patient have a stroke diagnosis?: No Procedures Date of Service Date of Service: 10/27/22
[2022-10-27] MEDS: Atorvastatin Calcium 20 MG TABLET PO (09:34)
[2022-10-27] MEDS: Apixaban 2.5 MG TABLET PO ×2 (09:34→22:15)
[2022-10-27] MEDS: Pentoxifylline ER 400 MG TABLET.ER PO (09:34)
[2022-10-27] MEDS: Sertraline HCL 100 MG TABLET 150 MG PO (09:35)
[2022-10-27] MEDS: Clopidogrel Bisulfate 75 MG TABLET PO (09:37)
[2022-10-27] MEDS: atenoloL 25 MG TABLET PO (09:37)
[2022-10-27] MEDS: Folic Acid 1 MG TABLET PO (09:37)
--- NOTE | 2022-10-27 12:51 | P.PNIM_ITS ---
Subjective Subjective Date of Service: 10/27/22 Interval History: sob Review of Systems weak generally sob seems similar fevers/tachycardia improved. Physical Exam Vital Signs: Vital Signs: Last Vital Signs Temp 98.1 F 10/27/22 11:51 Pulse 70 10/27/22 11:51 Resp 20 10/27/22 11:51 BP 122/79 10/27/22 11:51 Pulse Ox 93 10/27/22 11:51 O2 Del Method Nasal Cannula 10/27/22 11:51 O2 Flow Rate 2 10/27/22 11:51 BMI result Body Mass Index 28.2 Appearance: Alert.? Oriented X3.? not in distress.? cvs: rrr, [id number] , no murmur res: clear to auscultation ,no rhonchii or wheezing abd: no rebound or guarding ,nt, bs present. ext pulses present , no cyanosis . neuro: axo3 , nonfocal. Objective Data Active Medications Apixaban (Apixaban 2.5 Mg Tablet) 2.5 mg PO BID [facility] Last Admin: 10/27/22 09:34 Dose: 2.5 mg Documented By: ARON Atenolol (Atenolol 25 Mg Tablet) 25 mg PO DAILY [facility]; Protocol Last Admin: 10/27/22 09:37 Dose: 25 mg Documented By: ARON Atorvastatin Calcium (Atorvastatin Calcium 20 Mg Tablet) 20 mg PO DAILY [facility] Last Admin: 10/27/22 09:34 Dose: 20 mg Documented By: ARON Bismuth Subsalicylate (Bismuth Subsalicylate Liquid 524 Mg/30 Ml Oral.Susp) 524 mg PO Q30M PRN PRN Reason: Indigestion Clonazepam (Clonazepam 0.5 Mg Tablet) 0.5 mg PO BID PRN PRN Reason: Anxiety Last Admin: 10/26/22 20:24 Dose: 0.5 mg Documented By: WILLIAM Folic Acid (Folic Acid 1 Mg Tablet) 1 mg PO DAILY [facility] Last Admin: 10/27/22 09:37 Dose: 1 mg Documented By: ARON Ceftriaxone Sodium 1 gm/ (Sodium Chloride) 50 mls @ 100 mls/hr IV Q24H [facility] Last Infusion: 10/26/22 17:08 Dose: 0 mls/hr Documented By: NURA Azithromycin 500 mg/ Sodium (Chloride) 250 mls @ 125 mls/hr IV Q24H [facility] Last Infusion: 10/26/22 21:00 Dose: 0 mls/hr Documented By: WILLIAM Levalbuterol HCl (Levalbuterol Hcl 1.25 Mg/3 Ml Vial.Neb) 1.25 mg INHALE RTID [facility] Last Admin: 10/27/22 08:05 Dose: Not Given Documented By: ATIF Non-Admin Reason: Patient Asleep Levothyroxine Sodium (Levothyroxine Sodium 50 Mcg Tablet) 50 mcg PO DAILY@0600 [facility] Last Admin: 10/27/22 05:53 Dose: 50 mcg Documented By: WILLIAM Loperamide HCl (Loperamide Hcl 2 Mg Capsule) 2 mg PO Q4H PRN PRN Reason: Diarrhea Mirtazapine (Mirtazapine 30 Mg Tablet) 30 mg PO BEDTIME [facility] Last Admin: 10/26/22 20:21 Dose: 30 mg Documented By: WILLIAM Omeprazole (Omeprazole 20 Mg Capsule.Dr) 20 mg PO DAILY@0630 [facility] Last Admin: 10/27/22 05:54 Dose: 20 mg Documented By: WILLIAM Pentoxifylline (Pentoxifylline Er 400 Mg Tablet.Er) 400 mg PO DAILY [facility] Last Admin: 10/27/22 09:34 Dose: 400 mg Documented By: ARON Sertraline HCl (Sertraline Hcl 100 Mg Tablet) 150 mg PO DAILY [facility] Last Admin: 10/27/22 09:35 Dose: 150 mg Documented By: ARON Comments: Sodium Chloride (0.9 % Sodium Chloride Flush 3 Ml Syringe) 3 ml IVFLUSH QSHIFT [facility] Last Admin: 10/27/22 09:38 Dose: 3 ml Documented By: ARON Labs 10/27/22 08:28 10/27/22 08:28 Labs: Laboratory Results - last 24 hr 10/27/22 10/27/22 08:28 08:28 Plt Count 120 L Anion Gap 14 Estim Creat Clear Calc 24.8 Estimated GFR 30 Random Glucose 80 Calcium 9.3 D Microbiology Microbiology Results: Microbiology 10/25/22 16:32 Blood Culture - Preliminary Blood - Venous No growth after 24 hours. 10/25/22 15:40 Blood Culture - Preliminary Blood - Venous No growth after 24 hours. Assessment and Plan (1) Cardiomyopathy: Status: Acute (2) Anemia: Status: Acute (3) Thrombocytopenia: Status: Acute (4) Chronic kidney disease: Status: Acute Plan ?82-year-old female with past medical history of hypertension, CKD, hypothyroid ism, anxiety/depression-she is from [place] visiting her family here, she says that from last 2-3 days she is having lot of sneezing congestion, and also getting from yesterday short of breath.? She had some nausea which resolved.? She denies any significant cough or phlegm.? She has chills and feel feverish. 1. Acute hypoxemic respiratory failure/sepsis secondary to pneumonia leucocytosis , tachypnea, fever seems to be improved. Blood cultures pendin Lactic acid normal,Influenza and COVID screening negative, Res panel neg. Strep and Legionella antigen CT chest-multifocal pneumonia Continue IV antibiotics, Tylenol, oxygen support, question of atelectasis on the chest x-ray also we will add nebs, incentive spirometry.? 2.:? Hypertension:? Continue losartan/hydrochlorothiazide.atenolol. 3. CKD stage 4:? Monitor renal function closely 4. Anxiety /depression:? Continue sertraline, Remeron, clonazepam. 5. Hypothyroid:? Continue levothyroxine. normal tsh. 6. AFib on EKG:? Heart rate is controlled, continue atenolol She does not remember cardiac history-unclear why? she is on plavix . chadvasc of at least 2. cardiology evaluation noted-continue atenolol,started eliquis after d/w family. stop plavix as on eliquis echo The left ventricular systolic function is mild to moderately ? decreased.? The calculated ejection fraction is 42% by biplane ? method.? - Moderate biatrial enlargement. ? - There is moderate tricuspid valve regurgitation. ? - Mild pulmonary hypertension is present.?? 7. DVT prophylaxis: eliquis inapatient need:Acute hypoxemic respiratory failure/sepsis secondary to pneumonia-need iv antibiotics ,blood cultures pending Time Spent With Patient Time: Total time managing care of this patient today ____ minutes. Quality Stroke Does the patient have a stroke diagnosis?: No VTE Prior VTE?: No VTE Risk Level:: Medical - moderate - high VTE Device Contraindication: N/A - Device Ordered VTE Drug Contraindication: N/A - Med Ordered
--- NOTE | 2022-10-27 15:52 | MHC.CM.PN ---
IMM 10/27/22, EMR REVIEWED, CM MET W/PT AND [facility] AT BEDSIDE VIA [employer] OPERATOR HELPER, PT REPORTS SHE IS VISITING [facility] AND [facility] FROM [place] AND PLAN IS TO RETURN, PT IS INDEP AT HOME AND USES A CANE AND HAS A ROLLATER WALKER, GOAL FOR D/C IS TO RETURN TO [facility] HOME PRIOR TO RETURNING TO [place]. PT REPORTS HER PCP IN [place] IS SRINIVASAN COE AND HER DOPE MIXER IS MARIA VICTORIA KEITH, COVID VACC X3 AND PT REPORTS HCP IS [facility]TR/PRIMARY CONTACT ISABEL KEITH.
[2022-10-27] MEDS: cefTRIAXone sodium 1 GM in 0.9 % Sodium Chloride 50 ML IV (16:37)
[2022-10-27] MEDS: Azithromycin 500 MG in 0.9 % Sodium Chloride 250 ML 125 MG IV (17:41)
[2022-10-27] MEDS: levalbuterol HCL 1.25 MG/3 ML VIAL.NEB INHALE (19:44)
[2022-10-27] MEDS: Mirtazapine 30 MG TABLET PO (22:15)
[2022-10-27] MEDS: clonazePAM 0.5 MG TABLET PO (22:27)
[2022-10-28] VITALS (9 sets, daily range): BP systolic 118–154; BP diastolic 60–86; PULSE 70–89; RESP 16–20; TEMP 36.2–37; O2SAT 94–97
[2022-10-28] MEDS: Levothyroxine Sodium 50 MCG TABLET PO (06:29)
[2022-10-28] MEDS: Omeprazole 20 MG CAPSULE.DR PO (06:29)
[2022-10-28] MEDS: levalbuterol HCL 1.25 MG/3 ML VIAL.NEB INHALE ×2 (08:33→15:52)
[2022-10-28] MEDS: Pentoxifylline ER 400 MG TABLET.ER PO (10:20)
[2022-10-28] MEDS: 0.9 % Sodium Chloride Flush 3 ML SYRINGE IVFLUSH ×3 (10:21→20:20)
[2022-10-28] MEDS: Folic Acid 1 MG TABLET PO (10:21)
[2022-10-28] MEDS: Sertraline HCL 100 MG TABLET 150 MG PO (10:21)
[2022-10-28] MEDS: Atorvastatin Calcium 20 MG TABLET PO (10:21)
[2022-10-28] MEDS: Apixaban 2.5 MG TABLET PO ×2 (10:21→20:20)
[2022-10-28] MEDS: atenoloL 25 MG TABLET PO (10:21)
--- NOTE | 2022-10-28 11:47 | P.PNIM_ITS ---
Subjective Subjective Date of Service: 10/28/22 Interval History: Acute hypoxemic respiratory failure/sepsis secondary to pneumoni Review of Systems Still short of breath with minimal exertion, desats in high 80s with walking Had some cough dry, no fever Physical Exam Vital Signs: Vital Signs: Last Vital Signs Temp 97.2 F 10/28/22 07:53 Pulse 71 10/28/22 08:34 Resp 18 10/28/22 08:34 BP 118/66 10/28/22 07:53 Pulse Ox 96 10/28/22 07:53 O2 Del Method Nasal Cannula 10/28/22 07:53 O2 Flow Rate 1 10/28/22 07:53 BMI result Body Mass Index 28.2 Appearance: Alert.? Oriented X3.? not in distress.? cvs: rrr, [id number] , no murmur res: air entry fair ,few scattered rhonchii abd: no rebound or guarding ,nt, bs present. ext pulses present , no cyanosis . neuro: axo3 , nonfocal. Objective Data Active Medications Apixaban (Apixaban 2.5 Mg Tablet) 2.5 mg PO BID [facility] Last Admin: 10/28/22 10:21 Dose: 2.5 mg Documented By: ARON Atenolol (Atenolol 25 Mg Tablet) 25 mg PO DAILY [facility]; Protocol Last Admin: 10/28/22 10:21 Dose: 25 mg Documented By: ARON Atorvastatin Calcium (Atorvastatin Calcium 20 Mg Tablet) 20 mg PO DAILY [facility] Last Admin: 10/28/22 10:21 Dose: 20 mg Documented By: ARON Bismuth Subsalicylate (Bismuth Subsalicylate Liquid 524 Mg/30 Ml Oral.Susp) 524 mg PO Q30M PRN PRN Reason: Indigestion Clonazepam (Clonazepam 0.5 Mg Tablet) 0.5 mg PO BID PRN PRN Reason: Anxiety Last Admin: 10/27/22 22:27 Dose: 0.5 mg Documented By: RAQUEL Folic Acid (Folic Acid 1 Mg Tablet) 1 mg PO DAILY [facility] Last Admin: 10/28/22 10:21 Dose: 1 mg Documented By: ARON Ceftriaxone Sodium 1 gm/ (Sodium Chloride) 50 mls @ 100 mls/hr IV Q24H [facility] Last Infusion: 10/27/22 18:37 Dose: 100 mls/hr Documented By: RAQUEL Azithromycin 500 mg/ Sodium (Chloride) 250 mls @ 125 mls/hr IV Q24H [facility] Last Infusion: 10/28/22 00:46 Dose: 125 mls/hr Documented By: RAQUEL Levalbuterol HCl (Levalbuterol Hcl 1.25 Mg/3 Ml Vial.Neb) 1.25 mg INHALE RTID [facility] Last Admin: 10/28/22 08:33 Dose: 1.25 mg Documented By: ATIF Levothyroxine Sodium (Levothyroxine Sodium 50 Mcg Tablet) 50 mcg PO DAILY@0600 [facility] Last Admin: 10/28/22 06:29 Dose: 50 mcg Documented By: RAQUEL Loperamide HCl (Loperamide Hcl 2 Mg Capsule) 2 mg PO Q4H PRN PRN Reason: Diarrhea Mirtazapine (Mirtazapine 30 Mg Tablet) 30 mg PO BEDTIME [facility] Last Admin: 10/27/22 22:15 Dose: 30 mg Documented By: RAQUEL Omeprazole (Omeprazole 20 Mg Capsule.Dr) 20 mg PO DAILY@0630 [facility] Last Admin: 10/28/22 06:29 Dose: 20 mg Documented By: RAQUEL Pentoxifylline (Pentoxifylline Er 400 Mg Tablet.Er) 400 mg PO DAILY [facility] Last Admin: 10/28/22 10:20 Dose: 400 mg Documented By: ARON Sertraline HCl (Sertraline Hcl 100 Mg Tablet) 150 mg PO DAILY [facility] Last Admin: 10/28/22 10:21 Dose: 150 mg Documented By: ARON Sodium Chloride (0.9 % Sodium Chloride Flush 3 Ml Syringe) 3 ml IVFLUSH QSHIFT [facility] Last Admin: 10/28/22 10:21 Dose: 3 ml Documented By: AORN Labs 10/27/22 08:28 10/27/22 08:28 Microbiology Microbiology Results: Microbiology 10/25/22 16:32 Blood Culture - Preliminary Blood - Venous No growth after 48 hours. 10/25/22 15:40 Blood Culture - Preliminary Blood - Venous No growth after 48 hours. Assessment and Plan (1) Cardiomyopathy: Status: Acute (2) Anemia: Status: Acute (3) Thrombocytopenia: Status: Acute (4) Chronic kidney disease: Status: Acute Plan ?82-year-old female with past medical history of hypertension, CKD, hypothyroidism, anxiety/depression-she is from [place] visiting her family here, she says that from last 2-3 days she is having lot of sneezing congestion, and also getting from yesterday short of breath.? She had some nausea which resolved.? She denies any significant cough or phlegm.? She has chills and feel feverish. 1. Acute hypoxemic respiratory failure/sepsis secondary to pneumonia leucocytosis , tachypnea, fever seems to be improved. still sob /desats Blood cultures neg @48hrs Lactic acid normal,Influenza and COVID screening negative, Res panel neg. Strep and Legionella antigen CT chest-multifocal pneumonia Continue IV antibiotics, Tylenol, oxygen support, question of atelectasis on the chest x-ray also we will add nebs, incentive spirometry.? 2.:? Hypertension:? Continue losartan/hydrochlorothiazide.atenolol. 3. CKD stage 4:? Monitor renal function closely 4. Anxiety /depression:? Continue sertraline, Remeron, clonazepam. 5. Hypothyroid:? Continue levothyroxine. normal tsh. 6. AFib on EKG:? Heart rate is controlled, continue atenolol She does not remember cardiac history-unclear why? she is on plavix . chadvasc of at least 2. cardiology evaluation noted-continue atenolol,started eliquis after d/w family. stop plavix as on eliquis echo The left ventricular systolic function is mild to moderately ? decreased.? The calculated ejection fraction is 42% by biplane ? method.? - Moderate biatrial enlargement. ? - There is moderate tricuspid valve regurgitation. ? - Mild pulmonary hypertension is present.?? 7. DVT prophylaxis: eliquis inapatient need:Acute hypoxemic respiratory failure/sepsis secondary to pneumonia-need iv antibiotics , respiratory status is not optimal yet. Time Spent With Patient Time: Total time managing care of this patient today ____ minutes. Quality Stroke Does the patient have a stroke diagnosis?: No VTE Prior VTE?: No VTE Risk Level:: Medical - moderate - high VTE Device Contraindication: N/A - Device Ordered VTE Drug Contraindication: N/A - Med Ordered
[2022-10-28] MEDS: cefTRIAXone sodium 1 GM in 0.9 % Sodium Chloride 50 ML IV (15:56)
[2022-10-28] MEDS: Azithromycin 500 MG in 0.9 % Sodium Chloride 250 ML 125 MG IV (16:28)
[2022-10-28] MEDS: Mirtazapine 30 MG TABLET PO (20:19)
[2022-10-28] MEDS: clonazePAM 0.5 MG TABLET PO (20:25)
[2022-10-29 03:12] VITALS: BP 150/86; PULSE 73; RESP 18; TEMP 36.7; O2SAT 96
[2022-10-29] MEDS: Levothyroxine Sodium 50 MCG TABLET PO (05:45)
[2022-10-29] MEDS: Omeprazole 20 MG CAPSULE.DR PO (05:45)
[2022-10-29 07:10] VITALS: BP 151/74; PULSE 72; RESP 22; TEMP 36.3; O2SAT 96
[2022-10-29] MEDS: Atorvastatin Calcium 20 MG TABLET PO (09:57)
[2022-10-29] MEDS: Sertraline HCL 100 MG TABLET 150 MG PO (09:57)
[2022-10-29] MEDS: atenoloL 25 MG TABLET PO (09:58)
[2022-10-29] MEDS: Folic Acid 1 MG TABLET PO (09:58)
[2022-10-29] MEDS: Pentoxifylline ER 400 MG TABLET.ER PO (09:58)
[2022-10-29] MEDS: 0.9 % Sodium Chloride Flush 3 ML SYRINGE IVFLUSH (09:58)
[2022-10-29] MEDS: Apixaban 2.5 MG TABLET PO (09:58)
[2022-10-29 12:00] VITALS: BP 136/60; PULSE 72; RESP 22; TEMP 36.8; O2SAT 92
--- NOTE | 2022-10-29 12:38 | MHC.CM.PN ---
pt medically cleared for d/c, pt will return to [facility] home prior to returning to [place], family for transport.
[2022-10-29] MEDS: Azithromycin 500 MG TABLET PO (13:37)
[2022-10-29 15:05] VITALS: BP 152/85; PULSE 68; RESP 24; TEMP 36.9; O2SAT 92
[2022-10-29] MEDS: levalbuterol HCL 1.25 MG/3 ML VIAL.NEB INHALE (15:28)
[2022-10-29 15:31] VITALS: PULSE 66; RESP 20; O2SAT 92
--- NOTE | 2022-10-29 16:07 | P.DS_ITS ---
DS: Providers Provider Date of Service: 10/29/22 Date of admission: 10/25/22 18:17 Date of discharge: 10/29/22 Primary care physician: None Physician Consults: 10/25/22 18:47 Consult to Cardiology Routine Consulting Provider: [facility] Cardi[facility] Services Reason for consultation: possible new ons seet afib Has provider been notified: No DS: Diagnosis Discharge Diagnosis (1) Cardiomyopathy: Status: Acute (2) Anemia: Status: Acute (3) Thrombocytopenia: Status: Acute (4) Chronic kidney disease: Status: Acute DS: Summary Hospital Course Hospital Course: 82-year-old female with past medical history of hypertension, CKD, hypothyroidism, anxiety/depression-she is from [place] visiting her family here, she says that from last 2-3 days she is having lot of sneezing congestion, and also getting from yesterday short of breath.? She had some nausea which resolved.? She denies any significant cough or phlegm.? She has chills and feel feverish. Patient says that the shortness of breath was progressively getting worse so she decided to come to the hospital. As per the daughter she denies any sick contact .? She had diarrhea which resolved, denies any blood in the stool or any history of melena or bleeding. In ED:? Lab imaging EKG reviewed: She has WBC count of 12.4, lactic acid normal, creatinine of 2.1 baseline unclear but patient says that she has history of kidney disease. H&H 30.1.? Platelets 128 Chest x-ray:? Possible left-sided infiltrate. ?EKG:? afib. Patient received:? Ceftriaxone azithromycin, ibuprofen in ED, also placed on supportive oxygen: Sats was 83% on room air in ED documentation improving with 2 L oxygen Social history:? Which doing her family here , does not smoke or drink alcohol or recreation drug use. Hospital course: Patient was admitted for acute hypoxemic respiratory failure and sepsis second amador to pneumonia-started on IV antibiotics, supportive oxygen, blood cultures sent, CT chest shows multifocal pneumonia. With above supportive care patient seems to be improved, blood culture negative at 48 hours. Shortness of breath improved, as well as hypoxia-patient will be going home with p.o. antibiotic, please repeat chest imaging in 3-4 week. Microcytic anemia: H&H stable between 9-10 Further workup out patiently. Monitor CBC New onset AFib: Started on Eliquis, stopped Plavix since on Eliquis. Will give 30 days supply coupon for Eliquis further supplies as per PCP outpatient. Possible partha on CKD: Follow-up outpatient. Baseline creatinine is unknown. moniter bmp outpatient in 1 week,hold losartan/hydrochlorothiazide and further use losartan/hydrochlorothiazide outpatient as per patient's nephrology. Patient says that she already has appointment with PCP/nephrology next week. Consists consider Cardiology evaluation outpatient. Above management discussed with the patient in detail length family ( including patient, her daughter and granddaughter with the help of elevating grader operator) understands and in agreement with the above plan, time spent 50 minutes and 50% time spent on counseling. Time Spent with Patient Time attestation: Total time managing care of this patient today ____ minutes. Discharge coordination time: Greater than 30 minutes Quality: Safe Use of Opioids Does Pt have an Active Cancer Diagnosis on the Problem List?: No Quality: Stroke Does the patient have a stroke diagnosis?: No Physical Exam Vital Signs: Vital Signs: Last Vital Signs Temp 98.5 F 10/29/22 15:05 Pulse 66 10/29/22 15:31 Resp 20 10/29/22 15:31 BP 152/85 H 10/29/22 15:05 Pulse Ox 92 10/29/22 15:05 O2 Del Method Room Air 10/29/22 15:05 O2 Flow Rate 1 10/29/22 12:00 BMI result Body Mass Index 28.2 Appearance: Alert.? Oriented X3.? not in distress.? cvs: rrr, [id number] , no murmur res: clear to auscultation ,no rhonchii or wheezing abd: no rebound or guarding ,nt, bs present. ext pulses present , no cyanosis . neuro: axo3 , nonfocal. DS: Data Data Completed and Pending Labs on day of discharge: Preliminary micro results at discharge 10/25/22 16:32 Blood Culture - Preliminary Blood - Venous No growth after 48 hours. 10/25/22 15:40 Blood Culture - Preliminary Blood - Venous No growth after 48 hours. Imaging Chest x-ray: Radiologist's impression: ITS Impressions Chest X-Ray 10/25/22 16:15 IMPRESSION: 1. Probable small bilateral pleural effusions with bibasilar atelectasis. 2. Airspace opacities in the left mid and lower lung zone, perhaps pneumonia, though nonspecific. Follow-up is recommended to confirm clearing. If persistent, chest CT might help better evaluate the airspace opacities. Chest CT 10/25/22 19:50 IMPRESSION: Multifocal pneumonia as above. No parapneumonic effusion. Notable elevation right hemidiaphragm. Fleischner guidelines were followed. Renal Ultrasound 10/26/22 10:50 IMPRESSION: No evidence of hydronephrosis. Trace left perinephric fluid.. Discharge Plan Discharge Anticipated Discharge Date/Time: 10/29/22 11:47 Patient Disposition: Home, Self-Care Discharge Diagnosis: sepsis sec to pneumonia ,possible new afib, ckd. Referrals: Physician,None [Primary Care Provider] - 1 Week Discharge Medications: New Eliquis 2.5 mg Tablet 2.5 mg PO BID Qty: 60 0RF cefuroxime axetil 250 mg tablet 250 mg PO Q12H Qty: 14 0RF azithromycin 500 mg tablet 500 mg PO DAILY 6 Days Qty: 6 0RF ([facility]ADYS[facility] See Rx Instructions .ROUTE .MEDSUPPLY Qty: 1 0RF Rx Instructions: As directed Continued atorvastatin 20 mg Tablet 20 mg PO DAILY loperamide 2 mg Capsule 2 mg PO Q4H PRN (Reason: Diarrhea) Rx Instructions: administer after each loose stool until symptoms controlled; do not exceed 8 mg per 24 hrs clonazepam 0.5 mg Tablet 0.5 mg PO BID PRN (Reason: Anxiety) sertraline 100 mg Tablet 150 mg PO DAILY atenolol 25 mg Tablet 25 mg PO DAILY acetaminophen 500 mg Tablet 500 mg PO Q6H PRN (Reason: Pain) pentoxifylline 400 mg Tablet Extended Release 400 mg PO DAILY Rx Instructions: must administer with a meal/food levothyroxine 50 mcg Tablet 50 mcg PO DAILY pantoprazole 40 mg Tablet,Delayed Release (Dr/Ec) 40 mg PO DAILY mirtazapine 30 mg Tablet 30 mg PO BEDTIME folic acid 1 mg Tablet 1 mg PO DAILY bismuth subsalicylate 525 mg/15 mL Suspension 525 mg PO Q30M PRN (Reason: Indigestion) Rx Instructions: do not exceed 8 doses in a 24 hour period Held losartan-hydrochlorothiazide 100-12.5 mg Tablet 1 tab PO DAILY Hold Instructions: Resume on 11/26/22. hold for now repeat BMP out patiently, start back if cleared by Nephrology and if needed for blood pressure. Discontinued clopidogrel [Plavix] 75 mg Tablet 75 mg PO DAILY Discharge Orders: Discharge Order (Routine); Ordered 10/29/22 Ordered By: Berlin Hathaway Diet: Advance to usual diet Activity on Discharge: As tolerated Stand Alone Forms: Patient Portal Discharge page Care Plan Goals: Patient was admitted for acute hypoxemic respiratory failure and sepsis secondary to pneumonia-started on IV antibiotics, supportive oxygen, blood cultures sent, CT chest shows multifocal pneumonia. With above supportive care patient seems to be improved, blood culture negative at 48 hours. Shortness of breath improved, as well as hypoxia-patient will be going home with p.o. antibiotic, please repeat chest imaging in 3-4 week to see resolution of pneumonia. Microcytic anemia: H&H stable between 9-10 Further workup out patiently. Monitor CBC New onset AFib: Started on Eliquis, stopped Plavix since on Eliquis. Will give 30 days supply coupon for Eliquis further supplies as per PCP outpatient. Possible partha on CKD: Follow-up outpatient. Baseline creatinine is unknown. moniter bmp outpatient in 1 week,hold losartan/hydrochlorothiazide and further use losartan/hydrochlorothiazide outpatient as per patient's nephrology. Patient says that she already has appointment with PCP/nephrology next week. Consists consider Cardiology evaluation outpatient. Health Concerns: As above. Plan of Treatment: As above. Assessment: As above.
== END 2022-10-29 16:30 | disposition home or self-care (01) | DRG 871 ==
LOC: HO.ED 16:48 → HO.EDOVER 18:33 → HO.IMC 21:25
PROVIDERS: Physician Assistant; Admitting Provider Internal Medicine; Emergency Provider Emergency Medicine; Visit Provider Internal Medicine
DX: A41.9 Sepsis, unspecified organism (principal); J96.01 Acute respiratory failure with hypoxia; N18.4 Chronic kidney disease, stage 4 (severe); I42.9 Cardiomyopathy, unspecified; D63.1 Anemia in chronic kidney disease; D69.6 Thrombocytopenia, unspecified; I12.9 Hypertensive chronic kidney disease with stage 1 through stage 4 chronic kidney disease, or unspecified chronic kidney disease; F41.9 Anxiety disorder, unspecified; F32.A Depression, unspecified; I07.1 Rheumatic tricuspid insufficiency; I27.20 Pulmonary hypertension, unspecified; E03.9 Hypothyroidism, unspecified; I48.91 Unspecified atrial fibrillation; Z20.822 Contact with and (suspected) exposure to COVID-19; Z79.890 Hormone replacement therapy; Z79.899 Other long term (current) drug therapy
CPT/HCPCS: 36415; 71046; 71250; 76775; 80048; 80053; 83605; 83690; 84145; 84443; 84484; 85014; 85018; 85025; 85027; 85049; 85610; 85730; 87040; 87502; 87633; 87635; 93005; 93306; 94640; 99285; J0456; J0696; Q9957

== ENCOUNTER 2022-10-25 18:17 | Outpatient (BNV) | payer MEDICAID, SELFPAY | END 2022-10-26 07:00 | PROVIDERS: Admitting Provider Internal Medicine; Emergency Provider Emergency Medicine; Visit Provider Internal Medicine | DX: I36.1 Nonrheumatic tricuspid (valve) insufficiency (principal); I48.91 Unspecified atrial fibrillation | CPT/HCPCS: 93306 ==

== ENCOUNTER → 2022-10-25 18:17 | Outpatient (BNV) | payer MEDICAID, SELFPAY | PROVIDERS: Admitting Provider Internal Medicine; Emergency Provider Emergency Medicine; Visit Provider Internal Medicine | DX: I48.91 Unspecified atrial fibrillation (principal); I42.9 Cardiomyopathy, unspecified; A41.9 Sepsis, unspecified organism; J18.9 Pneumonia, unspecified organism; I12.9 Hypertensive chronic kidney disease with stage 1 through stage 4 chronic kidney disease, or unspecified chronic kidney disease; N18.9 Chronic kidney disease, unspecified; D64.9 Anemia, unspecified; D69.6 Thrombocytopenia, unspecified | CPT/HCPCS: 99223; 99233 ==

== ENCOUNTER → 2022-10-25 18:17 | Outpatient (BNV) | payer MEDICAID, SELFPAY | PROVIDERS: Admitting Provider Internal Medicine; Emergency Provider Emergency Medicine; Visit Provider Internal Medicine | DX: I42.9 Cardiomyopathy, unspecified (principal); D69.6 Thrombocytopenia, unspecified; N18.4 Chronic kidney disease, stage 4 (severe); J96.01 Acute respiratory failure with hypoxia; D64.9 Anemia, unspecified | CPT/HCPCS: 99222; 99232; 99239 ==

== ENCOUNTER 2024-11-07 15:42 | Emergency (ER) | payer SELFPAY ==
--- NOTE | ~2024-11-07 | XR_ITS ---
CLINICAL HISTORY: congestion 2 view chest x-ray Comparison: CR/SR - XR CHEST 2 VIEWS - 10/25/22 16:16 EDT Findings: There is pulmonary hypoinflation and elevation of the right hemidiaphragm. There are airspace opacities within the bilateral mid and lower lungs. Heart size is normal. No acute fracture. IMPRESSION: Pulmonary hypoinflation and elevation of the right hemidiaphragm with atelectasis and/or infiltrates within the bilateral lower lungs. This document has been electronically signed by: Mandy Barajas MD on 11/07/2024 16:42:20
[2024-11-07 15:51] VITALS: BP 101/52; PULSE 62; RESP 18; TEMP 36.3; O2SAT 93; BMI 5605.9
--- NOTE | 2024-11-07 15:52 | ED.GENADULT ---
HPI - General Adult General Chief complaint: General Medical Stated complaint: not feeling good, medication check Time Seen by Provider: 11/07/24 18:09 Source: patient Mode of arrival: ambulatory Limitations: language barrier (Mail Rider utilized) History of Present Illness ED Provider: Jurgen TALAVERA HPI narrative: The patient is an 84-year-old female with a history of chronic anemia, CKD, hypertension, atrial fibrillation, cardiomyopathy requiring continuous use of 1 L/min FiO2 via nasal cannula, thrombocytopenia, and recurrent pneumonia presenting to the ED with her daughter who is requesting medication refill for her mother. The patient reportedly was admitted 2 months ago at a hospital in [place] for pneumonia, patient was admitted for approximately 32 days, and upon discharge the patient's son informed the patient's daughter who lives in [place] that he is no longer able to care for the patient and patient would need to move to [place] with her daughter. The patient has been living with her daughter for approximately 1 month. Patient's daughter reports they are currently in the process of trying to establish [employer] health insurance for the patient to establish a primary care provider. The patient reportedly has been without multiple medications for the past 2 or more weeks and they presenting to the ED requesting medication refill. The patient's daughter has empty prescription bottles of sildenafil 20 mg 3 times a day which was last filled on 09/19/2024, and hydralazine 50 mg t.i.d. which was last filled on 09/03/2024, both were filled for a 30 day supply. Patient reports she was able to continue using these medications up until 2 weeks ago because of her 30 day hospital admission when she was not taking her own medication. The patient has an additional medication list, advises she is out of some of her other medications but does not have any of the bottles indicating which are out, patient left the other bottles at home. Patient also reports she is supposed to be taking folic acid, medication list provided shows last prescription was for 30 day course in early July. The patient does not appear to be have been prescribed folic acid since July. The patient reports she has been feeling generally unwell since moving to [place]. Patient reports she does have nebulizer ampules and a nebulizer machine which she brought with her from [place], also brought a portable oxygen concentrator with her which she uses regularly, but does not have FiO2 with her in the ED. patient denies overt chest pain, shortness of breath at rest, nausea, vomiting, diarrhea, fever/chills, or other acute focal somatic complaint. Related Data Home Medications ?Medication ?Instructions ?Recorded ?Confirmed acetaminophen 500 mg tablet 500 mg PO Q6H PRN Pain 10/25/22 10/25/22 atenolol 25 mg tablet 25 mg PO DAILY 10/25/22 10/25/22 atorvastatin 20 mg tablet 20 mg PO DAILY 10/25/22 10/25/22 bismuth subsalicylate 525 mg/15 mL 525 mg PO Q30M PRN Indigestion 10/25/22 10/25/22 oral suspension clonazepam 0.5 mg tablet 0.5 mg PO BID PRN Anxiety 10/25/22 10/25/22 folic acid 1 mg tablet 1 mg PO DAILY 10/25/22 10/25/22 levothyroxine 50 mcg tablet 50 mcg PO DAILY 10/25/22 10/25/22 loperamide 2 mg capsule 2 mg PO Q4H PRN Diarrhea 10/25/22 10/25/22 losartan 100 1 tab PO DAILY 10/25/22 10/25/22 mg-hydrochlorothiazide 12.5 mg tablet Held on 10/29/22. Instructions: Resume on 11/26/22. hold for now repeat BMP out patiently, start back if cleared by Nephrology and if needed for blood pressure. mirtazapine 30 mg tablet 30 mg PO BEDTIME 10/25/22 10/25/22 pantoprazole 40 mg tablet,delayed 40 mg PO DAILY 10/25/22 10/25/22 release pentoxifylline 400 mg 400 mg PO DAILY 10/25/22 10/25/22 tablet,extended release sertraline 100 mg tablet 150 mg PO DAILY 10/25/22 10/25/22 Previous Rx's ?Medication ?Instructions ?Recorded apixaban 2.5 mg tablet (Eliquis) 2.5 mg PO BID #60 tabs 10/29/22 azithromycin 500 mg tablet 500 mg PO DAILY 6 days #6 tabs 10/29/22 cefuroxime axetil 250 mg tablet 250 mg PO Q12H #14 tabs 10/29/22 walker #1 ea 10/29/22 hydralazine 50 mg tablet 50 mg PO TID 14 days #42 tabs 11/07/24 sildenafil 25 mg tablet (Viagra) 25 mg PO BID #28 tabs 11/07/24 Allergies Allergy/AdvReac Type Severity Reaction Status Date / Time No Known Allergies Allergy Verified 11/07/24 15:59 Review of Systems Review of Systems: Yes all other systems are reviewed and are negative [facility] Past Medical History Medical History (Updated 11/07/24 @ 19:02 by Jurgen Shin PA-C) Hypertension Chronic kidney disease Social History Social History Household Members: Family Housing: House Do you presently have visiting nurse or other home services: No Patient Tobacco Use Status: Never used Tobacco Advance Directives: No Advance Directives Information Provided: Yes service: No Physical Exam ED Vital Signs: Vital Signs - 24 hr 11/07/24 15:51 11/07/24 18:31 Temperature 97.4 F 97.4 F Pulse Rate 62 61 Respiratory Rate 18 14 Blood Pressure 101/52 L 120/63 Pulse Oximetry 93 97 Oxygen Delivery Method Room Air Room Air BMI result Body Mass Index 5605.9 CONSTITUTIONAL: The patient appears non-toxic, well nourished and in no acute distress. Vital signs as documented. HEAD: Atraumatic, normocephalic. EYES: EOMs grossly intact, pupils equal, conjunctiva clear, no exudate. ENT: Nares patent, no discharge. Airway patent, no audible stridor, visible mucosa is pink and moist without noted lesions. NECK: Trachea is midline, no obvious masses or gross abnormalities. CHEST: Symmetric movement, normal appearance. LUNGS: LS present and CTAB, no w/r/r. Non-labored work of breathing. CARDIAC: Regular Rhythm, S1/S2 appreciated, no murmurs, rubs or gallops. ABDOMEN: Abdomen soft and non-tender x4 quadrants, no palpable masses or organomegaly. : Deferred. EXTREMITIES: Normal tone, moves all extremities spontaneously without reported pain. No obvious acute injury or deformity noted. NEURO: Alert and oriented x3, CN II-XII appear grossly intact. Cerebellar Functioning grossly intact. No obvious sensory or motor deficits. Speech clear and appropriate. PSYCH: normal affect, appropriate eye contact, fluid speech, with appropriate response to questioning. No reported suicidality or homicidality. SKIN: Warm, dry, color appropriate, normal turgor. No rashes noted. Course Course Course Narrative: This is a Rapid Medical Examination (RME) performed by Riki Foley PA-C in triage. Full HPI, ROS, assessment and treatment plan per primary provider in the Main ED. Hx: 84 yo F hx of anemia, thrombocytopenia, cardiomyopathy, HTN, CKD here w/ daughter for eval of generalized weakness and congestion. daughter states patient returned [place] 1 mo ago, while there was hospitalist stating she was very sick . reports chronic lung issues with fluid in the lungs . she is also running low on many of her home medications, requesting refills - has a list of meds. patient is poor historian. Plan: labs, cxr, ekg Medical Decision Making Medical Decision Making MDM Narrative: 7:14 PM 11/07/2024 (Riki TALAVERA): The patient is an 84-year-old female presenting to the ED primarily for medication refill after she moved to [place] 1 month ago following a 30 day hospital admission for pneumonia. In the ED patient is overall well-appearing, initially reported some vague generalized unwell feelings, however vital signs reveal no evidence of hypotension, hypertension, hypoxia on room air without her FiO2, fever, tachypnea, or tachycardia. The patient's laboratory evaluation is consistent with her baseline anemia and CKD. The patient is COVID and influenza screening is negative. Patient's BNP is elevated at 1000, consistent with a history of cardiomyopathy. Troponin is negative, EKG shows atrial fibrillation consistent with the history, no acute changes from previous EKG performed at this facility in 2022. Chest x-ray shows hypoinflation and elevated right hemidiaphragm with question atelectasis versus infiltrates of the bilateral lower lungs. Patient in the ED appears in no acute distress, no increased respiratory effort, no hypoxia despite not using her prescribed FiO2. Patient and her daughter appear perseverating on medication refill rather than acute somatic complaint. Patient does not appear to require inpatient admission at this time. Patient and patient's daughter were instructed we will provide a short 2 week course of sildenafil and hydralazine as these of the only 2 medications we can confirm patient has been out of after being recently prescribed. The patient and daughter were advised they should be contacting the patient's primary care provider in [place] and requesting refills for extended coverage until they can establish a primary care provider in [place]. Patient and patient's daughter state their understanding and appreciation for the short course of refills. Admission/Observation Consideration of admission/observation: Escalation of care including admission/observation considered Lab Data MDM Lab Attestation statement: I reviewed the patient's lab results. 11/07/24 16:21 11/07/24 16:21 Labs: Lab Results 11/07/24 11/07/24 Range/Units 16:21 16:41 WBC 6.2 (4.8-10.8) X10*3/uL RBC 2.72 L (4.20-5.50) X10*6/uL Hgb 9.0 L (12.0-16.0) g/dl Hct 26.9 L (37.0-47.0) % MCV 98.9 H (80.0-98.0) fL MCH 33.1 H (27.0-33.0) pg MCHC 33.5 (31.0-35.0) g/dl RDW 15.4 (11.0-16.0) % Plt Count 122 L (160-400) X10*3/uL MPV 10.1 (9.4-12.3) fL Immature Gran % (Auto) 0.3 (0.0-0.4) % Neut % (Auto) 58.3 (45-73) % Lymph % (Auto) 21.9 (20-40) % [place] % (Auto) 10.4 (2-11) % Eos % (Auto) 8.6 H (0-4) % Baso % (Auto) 0.5 (0-2) % Lymph # (Auto) 1.4 (1.2-4.9) X10*3/uL [place] # (Auto) 0.6 (0.1-1.2) X10*3/uL Eos # (Auto) 0.5 H (0.0-0.4) X10*3/uL Baso # (Auto) 0.0 (0.0-0.2) X10*3/uL Abs Immat Gran (auto) 0.02 (0.00-0.03) X10*3/uL Absolute Neuts (auto) 3.6 (2.0-8.3) x10*3/uL Absolute Nucleated RBC 0.000 (0.0-0.012) X10*3/uL Nucleated RBC % (auto) 0.0 (0.0-0.2) /100WBC Sodium 140 (135-145) mmol/L Potassium 4.1 (3.3-5.1) mmol/L Chloride 107 (96-108) mmol/L Carbon Dioxide 23 (22-29) mmol/L Anion Gap 14 (12-20) BUN 82 H (9-16) mg/dL Creatinine 1.77 H (0.5-1.4) mg/dL Estim Creat Clear Calc -9.4 Estimated GFR 27 Random Glucose 107 (60-115) mg/dL Calcium 9.1 (8.4-10.2) mg/dL Magnesium 1.9 (1.6-2.6) mg/dL Total Bilirubin 0.4 (0.0-1.0) mg/dL AST 37 H (5-31) U/L ALT 33 H (0-31) U/L Alkaline Phosphatase 105 (39-117) U/L Troponin I High Sens 14.2 (<3.5-17.0) ng/L B-Natriuretic Peptide 1007 H (<100) pg/mL Total Protein 6.9 (6.5-8.0) g/dL Albumin 3.9 (3.5-5.0) g/dL COVID-19 (GERHARD) Negative (Negative) COVID-19 Clin Com See Note Influenza Type A (ALEXEI) Negative (Negative) Influenza Type B (ALEXEI) Negative (Negative) Influenza A & B Note See Note Independent Interpretation I performed an independent interpretation of an: EKG (EKG shows atrial fibrillation with a rate of 69, no evidence of acute ischemia, no ST elevation, no ectopy. QTC 390. Compared to previous on 10/25/2022 there are no significant morphology changes.) Radiology Impression Discussion of test interpretation with radiology: I have reviewed the radiologist's reading. Radiologist Impression: CLINICAL HISTORY: congestion 2 view chest x-ray Comparison: CR/SR - XR CHEST 2 VIEWS - 10/25/22 16:16 EDT Findings: There is pulmonary hypoinflation and elevation of the right hemidiaphragm. There are airspace opacities within the bilateral mid and lower lungs. Heart size is normal. No acute fracture. IMPRESSION: Pulmonary hypoinflation and elevation of the right hemidiaphragm with atelectasis and/or infiltrates within the bilateral lower lungs. This document has been electronically signed by: Mandy Barajas MD on 11/07/2024 16:42:20 External Record Review External record reviewed: Outpatient record Discharge Plan Discharge Clinical Impression: Encounter for medication refill Patient Disposition: Home, Self-Care Instructions: Medicine Refill (ED) Additional Instructions: Naif por elegir el Departamento de Urgencias del [facility] M?dico [place] para smyth atenci?n m?dica hoy. [place] an?lisis de laboratorio de hoy no muestra evidencia de infecci?n sist?leo aguda, anemia que requiera transfusi?n, anomal?as electrol?josue ni cambios significativos en smyth funci?n renal en comparaci?n con las pruebas realizadas en 2022. Donna pruebas de COVID-19 e influenza fueron negativas. [place]th electrocardiograma no muestra cambios agudos. [place]th presi?n arterial, frecuencia card?shukri, frecuencia respiratoria y nivel de ox?claudia fueron normales, incluso sin el uso de ox?claudia suplementario farooq smyth estancia en el departamento de urgencias. En charles momento, no hay indicaci?n de ingreso hospitalario ni de observaci?n continua en el departamento de urgencias, y es seguro darle de damion. El departamento de urgencias no es el proceso adecuado para resurtir medicamentos. David smyth situaci?n especial de haberse mudado recientemente al estado y estar a la espera de obtener un seguro m?dico para establecer un m?dico de cabecera, le proporcionamos un tratamiento de 2 semanas con sildenafil e hidralazina. Contin?e zaid?ndolos michelle se le indic? previamente. Tenga en cuenta que esta es devaughn burr?a ?jennifer que no se repetir?. Es fundamental que se comunique con smyth m?dico de cabecera de [place] el lunes para solicitar resurtidos adicionales de donna medicamentos mientras busca un nuevo m?dico de cabecera aqu? en [place]. [place] m?dico en [place] tiene devaughn relaci?n establecida con usted y puede recetarle con seguridad tratamientos extendidos de donna medicamentos. Si no tiene un m?dico de cabecera, llame a [facility] al [phone] para buscar un nuevo m?dico de cabecera. Mientras espera para buscar smyth nuevo m?dico de cabecera, puede llamar a nuestra Cl?jennifer de [place]n [facility] al [phone] para necesidades que no syeda de emergencia. Regrese a la reymundo de emergencias si presenta un cambio repentino o grave en donna s?ntomas, fiebre superior a 38 ?C que no mejora con Tylenol o ibuprofeno, v?mitos recurrentes o cualquier otro s?ntoma o inquietud nuevo o que empeore. Thank you for choosing [facility]'s Emergency Department for your care today. Your laboratory evaluation today shows no evidence of acute systemic infection, anemia requiring transfusion, electrolyte abnormalities, or a significant change in your kidney function compared to testing performed in 2022. Your COVID and influenza testing was negative. Your EKG shows no acute changes. Your blood pressure, heart rate, respiratory rate, and oxygen level were all normal, even without use of your supplemental oxygen while in the ED. At this time there is no indication for admission to the hospital or continued ED observation, and it is safe to discharge you home. The emergency department is not the appropriate process by which to refill medications. Given your special circumstance of recently moving to the state and currently awaiting health insurance in order to establish a primary care provider, we are providing you a 2 week course of your sildenafil and hydralazine. Please continue taking these as you were previously directed. Please understand this is a 1 time courtesy that will not be repeated. It is extremely important that you contact your primary care provider from [place] on Saturday to request additional refills of your medications while you are establishing of a new primary care doctor here in [place]. Your doctor in [place] has an established relationship with you and can safely prescribe you extended courses of your medications. As you do not have a primary care physician, please call the [facility] at [phone] to establish a new primary care physician. While waiting to establish your new primary care physician, you can call our [facility] at [phone] for non-emergency needs. Please return to the emergency department if you develop a severe or sudden change in your symptoms, a fever over 100.4 that does not improve with Tylenol or Ibuprofen, recurrent vomiting, or any other new or worsening symptoms or concerns. Prescriptions: New sildenafil [Viagra] 25 mg tablet 25 mg PO BID Qty: 28 0RF hydralazine 50 mg tablet 50 mg PO TID 14 Days Qty: 42 0RF No Action atorvastatin 20 mg Tablet 20 mg PO DAILY loperamide 2 mg Capsule 2 mg PO Q4H PRN (Reason: Diarrhea) Rx Instructions: administer after each loose stool until symptoms controlled; do not exceed 8 mg per 24 hrs clonazepam 0.5 mg Tablet 0.5 mg PO BID PRN (Reason: Anxiety) sertraline 100 mg Tablet 150 mg PO DAILY atenolol 25 mg Tablet 25 mg PO DAILY acetaminophen 500 mg Tablet 500 mg PO Q6H PRN (Reason: Pain) pentoxifylline 400 mg Tablet Extended Release 400 mg PO DAILY Rx Instructions: must administer with a meal/food levothyroxine 50 mcg Tablet 50 mcg PO DAILY pantoprazole 40 mg Tablet,Delayed Release (Dr/Ec) 40 mg PO DAILY mirtazapine 30 mg Tablet 30 mg PO BEDTIME folic acid 1 mg Tablet 1 mg PO DAILY bismuth subsalicylate 525 mg/15 mL Suspension 525 mg PO Q30M PRN (Reason: Indigestion) Rx Instructions: do not exceed 8 doses in a 24 hour period losartan-hydrochlorothiazide 100-12.5 mg Tablet 1 tab PO DAILY Eliquis 2.5 mg Tablet 2.5 mg PO BID Qty: 60 0RF cefuroxime axetil 250 mg tablet 250 mg PO Q12H Qty: 14 0RF azithromycin 500 mg tablet 500 mg PO DAILY 6 Days Qty: 6 0RF (MILADYS) bre Zhang See Rx Instructions .ROUTE .MEDSUPPLY Qty: 1 0RF Rx Instructions: As directed Print Language: Lebanese
--- NOTE | 2024-11-07 16:01 | ECG_ITS ---
Test Reason : hypertension Blood Pressure : */* mmHG Vent. Rate : 69 BPM Atrial Rate : * BPM P-R Int : * ms QRS Dur : 84 ms QT Int : 364 ms P-R-T Axes : * 73 -55 degrees QTcB Int : 390 ms Atrial fibrillation Low voltage QRS Cannot rule out Anterior infarct (cited on or before 25-Oct-2022) Abnormal ECG When compared with ECG of 25-Oct-2022 14:55, No significant change was found Referred By: Tammie Foley Electronically Signed By: ILIANA NEVES MD
[2024-11-07 16:27] LABS: MANUAL DIFF FLAG NO
[2024-11-07 16:29] LABS: Hematocrit 26.9 % (37.0-47.0); Hemoglobin 9.0 g/dl (12.0-16.0); Imm Gran Abs Auto 0.02 X10*3/uL (0.00-0.03); Imm Gran Pct Auto 0.3 % (0.0-0.4); Lymphocytes Absolute Auto 1.4 X10*3/uL (1.2-4.9); Mean Corpuscular HGB Conc 33.5 g/dl (31.0-35.0); Mean Corpuscular Hemoglobin 33.1 pg (27.0-33.0); Mean Corpuscular Volume 98.9 fL (80.0-98.0); NRBC Abs Auto 0.000 X10*3/uL (0.0-0.012); NRBC Pct Auto 0.0 /100WBC (0.0-0.2); Platelet Count 122 X10*3/uL (160-400); Red Blood Count 2.72 X10*6/uL (4.20-5.50); White Blood Count 6.2 X10*3/uL (4.8-10.8)
[2024-11-07 16:43] LABS: Alanine Aminotransferase 33 U/L (0-31); Albumin Level 3.9 g/dL (3.5-5.0); Alkaline Phosphatase 105 U/L (39-117); Anion Gap 14 (12-20); Aspartate Amino Transferase 37 U/L (5-31); Blood Urea Nitrogen 82 mg/dL (9-16); Calcium 9.1 mg/dL (8.4-10.2); Carbon Dioxide 23 mmol/L (22-29); Chloride 107 mmol/L (96-108); Creatinine Clr Calc Pharmacy -9.4; Estimated Glomerular Filt Rate 27; Magnesium 1.9 mg/dL (1.6-2.6); Potassium 4.1 mmol/L (3.3-5.1); Sodium 140 mmol/L (135-145); Total Protein 6.9 g/dL (6.5-8.0)
[2024-11-07 16:49] LABS: Troponin-I High Sensitivity 14.2 ng/L (<3.5-17.0)
--- NOTE | 2024-11-07 16:52 | PC.NURSE ---
Pt recently came from [place] where she primarily lived. She has a living brother that lives there but lives in a different town and is not with her every day, she other wises lives alone. Family reports that she was in the hospital for 1 month before coming to [place] for p[place], pt is out of a lot of medications, and seems that they are unclear of all the medications and medical diagnosis at this time. Pt has inogen oxygen tank at home but only uses it every few days if needed. Pt remains coughing at this time with yellow phlegm, lungs clear in most lobes.
[2024-11-07 16:54] LABS: B Type Natriuretic Peptide 1007 pg/mL (<100)
[2024-11-07 17:08] LABS: IDNOW Serial# 58CA691E; Influenza B2 Negative (Negative)
[2024-11-07 17:11] LABS: COVID-19 Test Negative (Negative); IDNOW Serial# 55D5AD1C
[2024-11-07 18:31] VITALS: BP 120/63; PULSE 61; RESP 14; TEMP 36.3; O2SAT 97
[2024-11-07 20:02] VITALS: BP 120/63; PULSE 61; RESP 14; TEMP 36.3; O2SAT 97
== END 2024-11-07 20:04 | disposition home or self-care (01) ==
PROVIDERS: Physician Assistant Medical; Emergency Provider Emergency Medicine
DX: I48.91 Unspecified atrial fibrillation (principal); R06.02 Shortness of breath; I10 Essential (primary) hypertension; Z76.0 Encounter for issue of repeat prescription; Z79.899 Other long term (current) drug therapy; Z11.52 Encounter for screening for COVID-19
CPT/HCPCS: 36415; 71046; 80053; 83735; 83880; 84484; 85025; 87502; 87635; 93005; 99283; 99284

== ENCOUNTER → 2024-11-07 16:00 | Outpatient (BNV) | payer MEDICARE, SELFPAY | PROVIDERS: Visit Provider Radiology Diagnostic Radiology | DX: J98.4 Other disorders of lung (principal) | CPT/HCPCS: 71046 ==

== ENCOUNTER → 2024-11-07 16:01 | Outpatient (BNV) | payer SELFPAY | PROVIDERS: Emergency Provider Emergency Medicine; Visit Provider Internal Medicine Cardiovascular Disease | DX: I48.91 Unspecified atrial fibrillation (principal) | CPT/HCPCS: 93010 ==